=== PATIENT | female | born 1955 | race African-American/Black ===

== ENCOUNTER 2018-08-25 15:13 | Outpatient (CLI) | payer MEDICARE | END 2018-08-25 15:14 | disposition home or self-care (01) | LOC: BICMAMMO 15:13 | PROVIDERS: ATTEND General Practice | DX: Z12.31 Encounter for screening mammogram for malignant neoplasm of breast (principal) | CPT/HCPCS: 77063; 77067 ==

== ENCOUNTER 2018-09-18 12:37 | Day surgery (SDC) | payer MEDICARE ==
--- NOTE | 2018-09-18 18:18 | OP ---
DATE OF PROCEDURE: 09/18/2018 TITLE OF PROCEDURE: EGD with snare polypectomy and biopsy. PREOPERATIVE DIAGNOSES: 1. Colon cancer screening. 2. History of colon resection for diverticular disease. POSTOPERATIVE DIAGNOSES: 1. Exam to ileocolonic anastomosis. 2. Small sessile polyp in the transverse colon, 1 cm distal to the anastomosis, removed by cold snar e technique. 3. Small polyp in a diverticulum, excised with biopsy forceps. 4. Small internal hemorrhoids. 5. Otherwise normal colonoscopy. PROCEDURE IN DETAIL: Written informed consent was obtained. Upon completion of the EGD, the patient was repositioned for the colonoscopy. A digital rectal exam was performed which revealed small exte rnal hemorrhoids. A Pentax video colonoscope was inserted through the anal canal and advanced under direct visualization to the ileocolonic anastomosis. Endoscopic findings revealed an intact appearin g anastomosis without ulcer or friability. About 1 cm distal to the anastomosis, a diminutive 3 cm s essile polyp was identified and removed by cold snare technique. The tissue was retrieved for histol ogy. Another smaller 2 mm sessile polyp was identified at the opening of a diverticulum in the trans verse colon. An excisional biopsy was performed. A small amount of stool was present in the diverti culum. No other synchronous polyps were identified. The retroflexed exam of the rectum demonstrated small internal hemorrhoids that were not actively bleeding. The colon was decompressed as the colon oscope was removed from the patient. She was transferred to the day stay surgery area for post-proce dure monitoring. There were no immediate complications. RECOMMENDATIONS: 1. Await pathology results. 2. Ask the patient to call me in 1 week for pathology results. 3. Repeat colonoscopy in five years pending pathology results. 4. Suggest a daily fiber supplement, Citracel 2 teaspoons in water every morning. 5. Follow up in GI clinic in 5-6 weeks.
--- NOTE | 2018-09-18 19:32 | OP ---
DATE OF PROCEDURE: 09/18/2018 PRIMARY CARE PHYSICIAN: Jesus Espinal MD in [place], [place]. TITLE OF PROCEDURE: EGD with biopsy. PREOPERATIVE DIAGNOSIS: Epigastric pain. POSTOPERATIVE DIAGNOSES: 1. Examination to second portion of duodenum. 2. Normal esophagus. 3. Mild patchy erythema of the gastric body, biopsied for RAFAELA test. 4. No gastric or duodenal ulcers identified. 5. Otherwise normal duodenum. PROCEDURE IN DETAIL: Written informed consent was obtained. The patient was brought to the endoscop y suite. Total intravenous anesthesia was provided by Dr. Jaime Smith. The patient was placed in l eft lateral decubitus position. A bite block was inserted into the mouth. A Pentax video diagnostic gastroscope was introduced into the oral cavity and the esophagus was carefully intubated. The raissa roscope was advanced under direct visualization to the second portion of the duodenum. Endoscopic fi ndings revealed a grossly normal esophagus with normal-appearing motility. The stomach was entered a nd carefully examined. This included a retroflexed view of the cardia and fundus. The mucosa of the gastric body demonstrated mild patchy erythema without erosion or bleeding. Biopsies were obtained for RAFAELA test. The duodenum from the bulb to the second portion was then inspected and appeared alycia l. No ulcers were seen. The stomach was decompressed as the endoscope was removed from the patient. She was repositioned for the colonoscopy. RECOMMENDATIONS: 1. Await RAFAELA test results. 2. Resume diet, but eat low fat. 3. For epigastric pain, suggest using famotidine 20 mg one b.i.d. 4. Follow up in GI clinic in 6 weeks.
== END 2018-09-18 17:40 | disposition home or self-care (01) ==
LOC: SDC 12:37
PROVIDERS: ATTEND Internal Medicine Gastroenterology
PROC: 0DBL8ZX Excision of Transverse Colon, Via Natural or Artificial Opening Endoscopic, Diagnostic (ICD-10-PCS; principal; 2018-09-18)
PROC: 0DBL8ZX Excision of Transverse Colon, Via Natural or Artificial Opening Endoscopic, Diagnostic (ICD-10-PCS; 2018-09-18)
PROC: 0DB68ZZ Excision of Stomach, Via Natural or Artificial Opening Endoscopic (ICD-10-PCS; 2018-09-18)
DX: D12.3 Benign neoplasm of transverse colon (principal); K63.5 Polyp of colon; K57.31 Diverticulosis of large intestine without perforation or abscess with bleeding; K64.4 Residual hemorrhoidal skin tags; K64.8 Other hemorrhoids; M19.90 Unspecified osteoarthritis, unspecified site; I11.0 Hypertensive heart disease with heart failure; I50.9 Heart failure, unspecified; E11.9 Type 2 diabetes mellitus without complications; E78.00 Pure hypercholesterolemia, unspecified; G47.30 Sleep apnea, unspecified; E73.9 Lactose intolerance, unspecified; E66.9 Obesity, unspecified; Z68.42 Body mass index [BMI] 45.0-49.9, adult; Z79.02 Long term (current) use of antithrombotics/antiplatelets; Z79.4 Long term (current) use of insulin; Z79.82 Long term (current) use of aspirin; Z79.899 Other long term (current) drug therapy; Z90.49 Acquired absence of other specified parts of digestive tract; Z98.890 Other specified postprocedural states
CPT/HCPCS: 36416; 87081; 88305

== ENCOUNTER 2019-09-30 15:40 | Outpatient (CLI) | payer MEDICARE ==
--- NOTE | 2019-09-30 16:45 | MMO ---
Bilateral MAMMO Bilat Screen [facility]. CLINICAL HISTORY: Patient is 64 years old and is seen for screening. The patient has no family history of breast cancer. The patient has no personal history of cancer. VIEWS: The views performed were: bilateral craniocaudal with tomosynthesis and bilateral mediolateral oblique with tomosynthesis. FILMS COMPARED: The present examination has been compared to prior imaging studies performed at [facility] on 11/27/2012, 12/22/2014, 01/09/2016 and 08/25/2018. This study has been interpreted with the assistance of computer-aided detection. MAMMOGRAM FINDINGS: There are scattered fibroglandular densities. Benign calcifications are noted bilaterally. There are no suspicious masses, suspicious calcifications, or new areas of architectural distortion. IMPRESSION: THERE IS NO MAMMOGRAPHIC EVIDENCE OF MALIGNANCY. A ROUTINE FOLLOW-UP MAMMOGRAM IN 1 YEAR IS RECOMMENDED. THE RESULTS OF THIS EXAM WERE SENT TO THE PATIENT. ACR BI-RADS Category 2 - Benign finding MAMMOGRAPHY NOTE: 1. A negative mammogram report should not delay a biopsy if a dominant of clinically suspicious mass is present. 2. Approximately 10% to 15% of breast cancers are not detected by mammography. 3. Adenosis and dense breasts may obscure an underlying neoplasm. Reported by: MARTY JEFFERS MD Electonically Signed: [id number]
== END 2019-09-30 15:41 | disposition home or self-care (01) ==
LOC: BICMAMMO 15:40
PROVIDERS: ATTEND Family Medicine
DX: Z12.31 Encounter for screening mammogram for malignant neoplasm of breast (principal)
CPT/HCPCS: 77063; 77067

== ENCOUNTER 2022-06-24 15:20 | Inpatient (IN) | payer OTHER, MEDICARE ==
[2022-06-24 16:04] LABS: Hemoglobin 5.4 g/dL (12.0-16.0); Mean Corpuscular HGB CONC 31.1 g/dL (32.0-36.0); Mean Corpuscular Hemoglobin 27.2 pg (27.0-31.0); Mean Corpuscular Volume 87.5 fL (78.0-98.0); Mean Platelet Volume 9.6 fL (7.4-10.4); Platelet Count 220 thou/uL (130-400); RBC Distribution Width 15.1 % (11.5-14.5); Red Blood Cell (RBC) Count 1.98 mill/uL (4.20-5.40)
[2022-06-24 16:09] LABS: Bacteria/HPF 4+ HPF (None Seen); Bilirubin 1+ (Negative); Blood, Urine 1+ (Negative); Glucose, Urine (Dipstick) 50 mg/dL (Negative); Ketone, Urine Negative (Negative); Leukocyte Negative Leu/uL (Negative); Nitrite Negative (Negative); Protein, Urine (Dipstick) 600 mg/dL (Neg-Trace); RBC/HPF 0-3 HPF (0-3); Urobilinogen 3 mg/dL (Less than 2)
[2022-06-24] MEDS ORDERED: Piperacillin/Tazobactam 4.5 GM VIAL ONE (16:12)
[2022-06-24 16:19] LABS: Clarity Turbid (Clear)
[2022-06-24 16:20] LABS: Anisocytosis SLIGHT = 6-15 cells (100X) (0-5/hpf); Band 3 % (5-11); Burr Cells SLIGHT = 2-5 cells (100X) (0-1/hpf); Hypochromia SLIGHT = 6-15 cells (100X) (0-5/hpf); Lymphocytes 17 % (21-51); MDiff Complete? YES; Monocytes 4 % (0-10); Neutrophil 69 % (42-75); Nucleated RBC 13 % (0); Platelet Morphology Comment Appears Adequate; Polychromasia SLIGHT = 2-3 cells (100X) (0-2/hpf); Reactive Lymphocytes 7 % (0-10); Target Cells SLIGHT = 2-5 cells (100X) (0-1/hpf)
[2022-06-24 16:20] LABS: WBC/HPF 0-3 HPF (0-3)
[2022-06-24] MEDS ORDERED: Sodium Bicarb 50 MEQ/50 ML Abboject 8.4% SYRINGE ONE (16:21)
[2022-06-24] MEDS ORDERED: Atropine Sulfate 1 mg/10 ml Syringe ONE (16:21)
[2022-06-24] MEDS ORDERED: Calcium Chloride 1 GM/10 ML Abboject SYRINGE ONE (16:21)
[2022-06-24] MEDS ORDERED: EPINEPHrine 1 MG/10 ML Abboject SYRINGE ONE ×2 (16:21→23:38)
[2022-06-24 16:22] LABS: ALT (SGPT) 147 U/L (8-55); AST (SGOT) 119 U/L (5-34); Albumin 2.8 g/dL (3.4-4.8); Alkaline Phosphatase 120 U/L (40-110); Anion Gap 17 mmol/L (10-20); BUN (Urea Nitrogen) 37 mg/dL (9.8-20.1); Bilirubin, Total 1.1 mg/dL (0.2-1.2); Calc. Creatinine Clearance 0 mL/min (70-130); Calcium 8.3 mg/dL (7.8-10.44); Carbon Dioxide 21 mmol/L (23-31); Chloride 101 mmol/L (98-107); Estimated GFR 9; Globulin 3.3 g/dL (2.4-3.5); Glucose 147 mg/dL (80-115); Potassium 4.1 mmol/L (3.5-5.1); Protein, Total 6.1 g/dL (5.8-8.1); Sodium 135 mmol/L (136-145)
[2022-06-24 19:05] LABS: Lactic Acid 1.5 mmol/L (0.5-2.2)
[2022-06-24] MEDS ORDERED: NOREPINEPHRINE 8 MG/250 ML-D5W 250 ML ONE (19:17)
[2022-06-24 19:24] LABS: SARS-CoV-2 NAA Rapid Test Not Detected (NotDetected)
[2022-06-24] MEDS ORDERED: Ketamine 50 MG/ML (10ML VIAL) ONE (20:26)
[2022-06-24] MEDS ORDERED: Fentanyl 100 MCG/2 ML VIAL ONE (20:27)
[2022-06-24] MEDS ORDERED: Fentanyl CADD 100 ML IV SCH (20:45)
[2022-06-24] MEDS ORDERED: Propofol 1,000 MG/100 ML VIAL IV ONE (21:03)
[2022-06-24] MEDS ORDERED: Aspirin 300 MG Suppository ONE (21:03)
[2022-06-24] MEDS ORDERED: NOREPINEPHRINE 8 MG/250 ML-D5W 250 ML IVPB PRN (21:24)
[2022-06-24] MEDS ORDERED: Ondansetron PF 4 MG/2 ML Vial IVP PRN (21:24)
[2022-06-24] MEDS ORDERED: Ondansetron ODT 4 MG TAB PO PRN (21:24)
[2022-06-24] MEDS ORDERED: Acetaminophen 650 MG Suppository PR PRN (21:24)
[2022-06-24] MEDS ORDERED: Ventilator Sedation Protocol 1 EACH FS SCH (21:30)
[2022-06-24] MEDS ORDERED: Dextrose 5% in Water 1,000 ML IV PRN (21:33)
[2022-06-24] MEDS ORDERED: Midazolam HCl 2 mg/2 ml Vial SLOW IVP PRN (21:34)
[2022-06-24] MEDS ORDERED: Morphine 4 MG/ML VIAL SLOW IVP PRN (21:45)
[2022-06-24] MEDS ORDERED: Propofol BOLUS 1,000 MG/100 ML VIAL IV PRN (21:45)
[2022-06-24] MEDS ORDERED: Fentanyl BOLUS 250 ML IVPB PRN (21:45)
[2022-06-24] MEDS ORDERED: DISCONTINUE PREVIOUS NARCOTIC PAIN MEDICATIONS AND BENZODIAZEPINES FS SCH (21:45)
[2022-06-24 21:46] LABS: Anion Gap 21 mmol/L (10-20); BUN (Urea Nitrogen) 38 mg/dL (9.8-20.1); Calc. Creatinine Clearance 0 mL/min (70-130); Calcium 7.9 mg/dL (7.8-10.44); Carbon Dioxide 19 mmol/L (23-31); Chloride 102 mmol/L (98-107); Estimated GFR 8; Glucose 195 mg/dL (80-115); Magnesium 2.2 mg/dL (1.6-2.6); Potassium 4.6 mmol/L (3.5-5.1); Sodium 137 mmol/L (136-145)
[2022-06-24 22:46] LABS: Lactic Acid 4.3 mmol/L (0.5-2.2)
[2022-06-24] MEDS ORDERED: Furosemide 40 MG/4 ML VIAL ONE (23:50)
[2022-06-25] MEDS: Doxycycline 100 MG in Sodium Chloride 0.9% 100 ML IVPB SCH ×2 (00:49→12:37)
[2022-06-25 01:52] LABS: Hemoglobin 6.5 g/dL (12.0-16.0); Mean Corpuscular HGB CONC 30.9 g/dL (32.0-36.0); Mean Corpuscular Hemoglobin 28.3 pg (27.0-31.0); Mean Corpuscular Volume 91.7 fL (78.0-98.0); Mean Platelet Volume 9.3 fL (7.4-10.4); Platelet Count 241 thou/uL (130-400); RBC Distribution Width 15.1 % (11.5-14.5); White Blood Cell (WBC) Count 12.2 thou/uL (4.8-10.8)
[2022-06-25 02:09] LABS: Anisocytosis SLIGHT = 6-15 cells (100X) (0-5/hpf); Band 8 % (5-11); Lymphocytes 12 % (21-51); MDiff Complete? YES; Monocytes 3 % (0-10); Neutrophil 77 % (42-75); Nucleated RBC 5 % (0)
[2022-06-25 02:10] LABS: ALT (SGPT) 167 U/L (8-55); AST (SGOT) 161 U/L (5-34); Albumin 2.8 g/dL (3.4-4.8); Alkaline Phosphatase 121 U/L (40-110); Anion Gap 24 mmol/L (10-20); BUN (Urea Nitrogen) 39 mg/dL (9.8-20.1); Bilirubin, Total 1.4 mg/dL (0.2-1.2); Calc. Creatinine Clearance 23 mL/min (70-130); Calcium 7.9 mg/dL (7.8-10.44); Carbon Dioxide 15 mmol/L (23-31); Chloride 103 mmol/L (98-107); Estimated GFR 8; Globulin 3.3 g/dL (2.4-3.5); Glucose 211 mg/dL (80-115); Potassium 4.8 mmol/L (3.5-5.1); Protein, Total 6.1 g/dL (5.8-8.1); Sodium 137 mmol/L (136-145)
[2022-06-25] MEDS ORDERED: EPINEPHrine 4 MG in Dextrose 5% in Water 250 ML IV SCH (02:30)
[2022-06-25 02:32] LABS: Base Excess (BEa) 36.9 mEq/L (-2.0 to +3.0); CO2 Tension 90.6 mmHg (35.0-45.0); Calcium, Ionized (arterial) 0.85 mmol/L (1.12-1.30); Carboxyhemoglobin (COHb) 0.6 gm% (0.0-3.0); O2 Tension (PaO2), arterial 188.2 mmHg (> 80.0); Potassium - ABG Lab 5.09 mmol/L (3.70-5.30); Puncture Site LINE; pH, Arterial 7.47 (7.35-7.45)
[2022-06-25 02:35] LABS: Actual Bicarbonate (HCO3a) 13.6 mEq/L (22-28); Base Excess (BEa) -14.7 mEq/L (-2.0 to +3.0); CO2 Tension 42.9 mmHg (35.0-45.0); Calcium, Ionized (arterial) 1.07 mmol/L (1.12-1.30); Carboxyhemoglobin (COHb) 0.3 gm% (0.0-3.0); Hemoglobin (Hb) 7.2 g/dL (12.0-16.0); O2 Tension (PaO2), arterial 263.9 mmHg (> 80.0); Potassium - ABG Lab 5.83 mmol/L (3.70-5.30)
[2022-06-25 02:36] LABS: Puncture Site LINE; pH, Arterial 7.12 (7.35-7.45)
[2022-06-25 02:37] LABS: ALV-art Gradient 395.475 mmHg (0-20)
[2022-06-25] MEDS: Piperacillin/Tazobactam 3.375 GM in Sodium Chloride 0.9% 100 ML IVPB SCH ×3 (03:00→21:45)
[2022-06-25] MEDS: Sodium Bicarbonate 150 MEQ in Sterile Water Injection 1,000 ML IV SCH ×2 (03:01→13:45)
[2022-06-25] MEDS ORDERED: Pantoprazole 40 MG VIAL IVP SCH ×2 (04:30→21:00)
[2022-06-25 05:10] LABS: Lactic Acid 8.7 mmol/L (0.5-2.2)
[2022-06-25 05:12] LABS: ALT (SGPT) 175 U/L (8-55); AST (SGOT) 184 U/L (5-34); Albumin 2.8 g/dL (3.4-4.8); Alkaline Phosphatase 122 U/L (40-110); Anion Gap 25 mmol/L (10-20); BUN (Urea Nitrogen) 38 mg/dL (9.8-20.1); Bilirubin, Total 1.7 mg/dL (0.2-1.2); Calc. Creatinine Clearance 23 mL/min (70-130); Calcium 7.8 mg/dL (7.8-10.44); Carbon Dioxide 16 mmol/L (23-31); Cardiac Risk 6.9 (Less than 4.5); Chloride 102 mmol/L (98-107); Cholesterol 104 mg/dl (< 200 Desired); Estimated GFR 8; Globulin 3.4 g/dL (2.4-3.5); Glucose 206 mg/dL (80-115); HDL Cholesterol 15 mg/dL (>60 Neg Risk); LDL Cholesterol, Calculated 53 mg/dL; Magnesium 2.2 mg/dL (1.6-2.6); Potassium 4.9 mmol/L (3.5-5.1); Protein, Total 6.2 g/dL (5.8-8.1); Sodium 138 mmol/L (136-145); Triglycerides 180 mg/dL (Less than 150)
[2022-06-25 05:16] LABS: Anisocytosis MODERATE=16-30 cells (100X) (0-5/hpf); Band 16 % (5-11); Hemoglobin 7.5 g/dL (12.0-16.0); Lymphocytes 6 % (21-51); MDiff Complete? YES; Mean Corpuscular Hemoglobin 28.8 pg (27.0-31.0); Mean Platelet Volume 9.6 fL (7.4-10.4); Monocytes 6 % (0-10); Neutrophil 72 % (42-75); Nucleated RBC 14 % (0); Platelet Count 247 thou/uL (130-400); RBC Distribution Width 14.8 % (11.5-14.5); White Blood Cell (WBC) Count 12.2 thou/uL (4.8-10.8)
[2022-06-25] MEDS ORDERED: Heparin 25,000 units/D5W 500 ML IV SCH (05:30)
[2022-06-25] MEDS ORDERED: Heparin 10,000 UNITS/ 10 ML VIAL SLOW IVP SCH ×2 (05:30→17:00)
[2022-06-25 06:03] LABS: INR-International Normal Ratio 1.5; Prothrombin Time 18.6 sec (12.0-14.7)
[2022-06-25 06:04] LABS: PTT 27.3 sec (22.9-36.1)
[2022-06-25 06:20] LABS: D-Dimer Test 9.05 *mcg/mL (0.27-0.43)
[2022-06-25] MEDS ORDERED: Sodium Chloride 0.9% 500 ML IVPB SCH (06:45)
[2022-06-25] MEDS ORDERED: ANTIBIOTICS IVPB PRN (07:31)
[2022-06-25] MEDS ORDERED: Sodium Bicarb 50 MEQ/50 ML VIAL ONE ×2 (07:52→07:55)
[2022-06-25] MEDS ORDERED: Sodium Bicarb 50 MEQ/50 ML VIAL IVP SCH (08:00)
[2022-06-25 08:03] LABS: Actual Bicarbonate (HCO3a) 12.8 mEq/L (22-28); Base Excess (BEa) -14.2 mEq/L (-2.0 to +3.0); CO2 Tension 34.1 mmHg (35.0-45.0); Calcium, Ionized (arterial) 1.01 mmol/L (1.12-1.30); Carboxyhemoglobin (COHb) 0.3 gm% (0.0-3.0); Hemoglobin (Hb) 7.4 g/dL (12.0-16.0); O2 Tension (PaO2), arterial 432.1 mmHg (> 80.0); Potassium - ABG Lab 4.83 mmol/L (3.70-5.30)
[2022-06-25 08:04] LABS: Acetaminophen Less than 10.0 mcg/mL (10.0-30.0); Alcohol Less than 10 mg/dL (Less than 10); Salicylate Less than 8.0 mg/dL (15.0-30.0)
[2022-06-25 08:05] LABS: Puncture Site Arterial Line; pH, Arterial 7.19 (7.35-7.45)
[2022-06-25 08:06] LABS: ALV-art Gradient 238.275 mmHg (0-20)
[2022-06-25] MEDS: Propofol 1,000 MG/100 ML VIAL IV PRN ×2 (08:11→18:17)
[2022-06-25 08:19] LABS: Amphetamine Not Detected (NotDetected); Barbiturates Screen Not Detected (NotDetected); Benzodiazepine Screen Not Detected (NotDetected); Cocaine Metabolite Screen Not Detected (NotDetected); Methadone Not Detected (NotDetected); Methamphetamine Not Detected (NotDetected); Opiate Screen Not Detected (NotDetected); Oxycodone Screen Not Detected (NotDetected); Phencyclidine (PCP) Not Detected (NotDetected); THC/Cannabinoid Screen Not Detected (NotDetected); Tricyclic Screen Not Detected (NotDetected)
[2022-06-25 08:20] LABS: Troponin I 1.243 ng/mL (< 0.028)
[2022-06-25 08:26] LABS: HBCM Index 0.05 S/CO (0-0.79); HBSAg Index 0.25 S/CO (0-0.99); Hep A IgM AB Non-Reactive (NonReactive); Hep A IgM S/CO 0.15 S/CO (0-0.79); Hep B Surf Ag Non-Reactive S/CO (NonReactive); Hep C IgG Ab Non-Reactive (NonReactive); Hep C Index 0.23 S/CO (0-0.79); Hepatitis B Core IgM Abs Non-Reactive (NonReactive)
[2022-06-25] MEDS: Hydrocortisone Sod Succ/PF 100 mg/2 ml Vial IVP SCH ×2 (08:46→18:17)
[2022-06-25] MEDS ORDERED: Heparin 5,000 UNITS/ML VIAL SC SCH (09:00)
[2022-06-25 11:18] LABS: Lactic Acid 7.4 mmol/L (0.5-2.2)
[2022-06-25] MEDS ORDERED: ALTEPLASE (TPA) 50 MG/50 ML VIAL IVP SCH ×2 (11:45→12:30)
[2022-06-25 12:34] LABS: Hemoglobin 7.9 g/dL (12.0-16.0)
[2022-06-25] MEDS: Pantoprazole 80 MG, Admixture Fee 1 EACH in Sodium Chloride 0.9% 100 ML IVPB SCH ×2 (12:34→22:42)
[2022-06-25] MEDS: Aspirin Chewable 81 MG TAB PO SCH (12:37)
[2022-06-25] MEDS ORDERED: STERILE WATER IVPB SCH (14:00)
[2022-06-25] MEDS ORDERED: ALTEPLASE IVPB SCH (14:00)
[2022-06-25 15:12] LABS: INR-International Normal Ratio 1.6; PTT 28.1 sec (22.9-36.1); Prothrombin Time 19.1 sec (12.0-14.7)
[2022-06-25 16:13] LABS: Hemoglobin 7.2 g/dL (12.0-16.0); Mean Corpuscular HGB CONC 32.3 g/dL (32.0-36.0); Mean Corpuscular Hemoglobin 28.5 pg (27.0-31.0); Mean Platelet Volume 9.8 fL (7.4-10.4); Platelet Count 151 thou/uL (130-400); RBC Distribution Width 14.7 % (11.5-14.5); Red Blood Cell (RBC) Count 2.54 mill/uL (4.20-5.40); White Blood Cell (WBC) Count 10.8 thou/uL (4.8-10.8)
[2022-06-25 16:22] LABS: INR-International Normal Ratio 1.8; PTT 41.4 sec (22.9-36.1); Prothrombin Time 21.3 sec (12.0-14.7)
[2022-06-25 16:55] LABS: Lactic Acid 2.7 mmol/L (0.5-2.2)
[2022-06-25 16:57] LABS: Anion Gap 26 mmol/L (10-20); BUN (Urea Nitrogen) 42 mg/dL (9.8-20.1); Calc. Creatinine Clearance 24 mL/min (70-130); Calcium 7.5 mg/dL (7.8-10.44); Carbon Dioxide 15 mmol/L (23-31); Chloride 101 mmol/L (98-107); Estimated GFR 8; Glucose 220 mg/dL (80-115); Potassium 4.8 mmol/L (3.5-5.1); Sodium 137 mmol/L (136-145)
[2022-06-25] MEDS ORDERED: Heparin 25,000 units/D5W 500 ML IVPB SCH ×2 (17:00)
[2022-06-25 17:09] LABS: Troponin I 1.365 ng/mL (< 0.028)
[2022-06-25] MEDS: Heparin 25,000 units/D5W 500 ML IVPB SCH (18:28)
[2022-06-25 22:52] LABS: Legionella Urinary Ag Negative (Negative); Strep pneumo Urine Ag NEGATIVE (NEGATIVE)
[2022-06-26] MEDS: Doxycycline 100 MG in Sodium Chloride 0.9% 100 ML IVPB SCH (00:06)
[2022-06-26] MEDS: Hydrocortisone Sod Succ/PF 100 mg/2 ml Vial IVP SCH (00:07)
[2022-06-26 00:31] LABS: Hemoglobin 6.9 g/dL (12.0-16.0); Mean Corpuscular HGB CONC 32.2 g/dL (32.0-36.0); Mean Corpuscular Hemoglobin 28.3 pg (27.0-31.0); Mean Corpuscular Volume 87.9 fL (78.0-98.0); Mean Platelet Volume 9.7 fL (7.4-10.4); Platelet Count 143 thou/uL (130-400); Red Blood Cell (RBC) Count 2.44 mill/uL (4.20-5.40); White Blood Cell (WBC) Count 9.1 thou/uL (4.8-10.8)
[2022-06-26] MEDS: Sodium Bicarbonate 150 MEQ in Sterile Water Injection 1,000 ML IV SCH ×3 (00:36→16:20)
[2022-06-26 00:55] LABS: PTT Greater than 250.0 sec (22.9-36.1)
[2022-06-26] MEDS: Propofol 1,000 MG/100 ML VIAL IV PRN (04:42)
[2022-06-26 04:46] LABS: ALT (SGPT) 455 U/L (8-55); AST (SGOT) 497 U/L (5-34); Albumin 2.5 g/dL (3.4-4.8); Alkaline Phosphatase 105 U/L (40-110); Anion Gap 23 mmol/L (10-20); BUN (Urea Nitrogen) 46 mg/dL (9.8-20.1); Bilirubin, Total 2.7 mg/dL (0.2-1.2); Calc. Creatinine Clearance 22 mL/min (70-130); Calcium 7.5 mg/dL (7.8-10.44); Carbon Dioxide 21 mmol/L (23-31); Chloride 99 mmol/L (98-107); Estimated GFR 7; Glucose 207 mg/dL (80-115); Iron 18 ug/dL (50-170); Iron Binding Capacity, Total 309 mcg/dL (265-497); Lactic Acid 2.1 mmol/L (0.5-2.2); Magnesium 1.9 mg/dL (1.6-2.6); Potassium 4.3 mmol/L (3.5-5.1); Protein, Total 5.5 g/dL (5.8-8.1); Sodium 139 mmol/L (136-145)
[2022-06-26] MEDS ORDERED: Fentanyl CADD 100 ML ONE (04:58)
[2022-06-26 05:07] LABS: Band 14 % (5-11); Lymphocytes 7 % (21-51); MDiff Complete? YES; Mean Corpuscular HGB CONC 31.8 g/dL (32.0-36.0); Mean Corpuscular Volume 87.9 fL (78.0-98.0); Monocytes 5 % (0-10); Neutrophil 74 % (42-75); Nucleated RBC 8 % (0); Platelet Count 147 thou/uL (130-400); Red Blood Cell (RBC) Count 2.49 mill/uL (4.20-5.40); White Blood Cell (WBC) Count 9.4 thou/uL (4.8-10.8)
[2022-06-26] MEDS ORDERED: hydrALAZINE 20 MG/ML VIAL SLOW IVP PRN (06:59)
[2022-06-26 07:01] LABS: Actual Bicarbonate (HCO3a) 21.1 mEq/L (22-28); Base Excess (BEa) -2.6 mEq/L (-2.0 to +3.0); Calcium, Ionized (arterial) 0.94 mmol/L (1.12-1.30); Carboxyhemoglobin (COHb) 0.5 gm% (0.0-3.0); Potassium - ABG Lab 4.03 mmol/L (3.70-5.30); pH, Arterial 7.44 (7.35-7.45)
[2022-06-26 07:08] LABS: Puncture Site Arterial Line
[2022-06-26 07:17] LABS: Mean Corpuscular HGB CONC 31.7 g/dL (32.0-36.0); Mean Corpuscular Hemoglobin 28.3 pg (27.0-31.0); Mean Corpuscular Volume 89.4 fL (78.0-98.0); Mean Platelet Volume 10.2 fL (7.4-10.4); Platelet Count 143 thou/uL (130-400); Red Blood Cell (RBC) Count 2.48 mill/uL (4.20-5.40); White Blood Cell (WBC) Count 9.1 thou/uL (4.8-10.8)
[2022-06-26] MEDS ORDERED: Magnesium 2 GM/50 ML(in water) 2 GM in Premix Bag 1 BAG IVPB SCH (08:00)
[2022-06-26 08:44] LABS: Troponin I 1.972 ng/mL (< 0.028)
[2022-06-26] MEDS: Heparin 25,000 units/D5W 500 ML IVPB SCH (09:05)
[2022-06-26] MEDS: Aspirin Chewable 81 MG TAB PO SCH (09:07)
[2022-06-26] MEDS: niCARdipine 25 MG in Sodium Chloride 0.9% 250 ML 250 ML IVPB PRN ×2 (10:18→13:04)
[2022-06-26] MEDS: HumaLOG 300 UNITS/3 ML VIAL SC PRN ×3 (10:31→22:42)
[2022-06-26] MEDS: Pantoprazole 80 MG, Admixture Fee 1 EACH in Sodium Chloride 0.9% 100 ML IVPB SCH ×2 (11:20→22:16)
[2022-06-26] MEDS: Piperacillin/Tazobactam 3.375 GM in Sodium Chloride 0.9% 100 ML IVPB SCH ×2 (11:20→21:40)
[2022-06-26 12:25] LABS: PTT Greater than 250.0 sec (22.9-36.1)
[2022-06-26] MEDS ORDERED: Amlodipine 5 MG TAB PO SCH (14:00)
[2022-06-26 15:11] LABS: Hemoglobin 6.8 g/dL (12.0-16.0); Mean Corpuscular HGB CONC 31.8 g/dL (32.0-36.0); Mean Corpuscular Hemoglobin 27.8 pg (27.0-31.0); Mean Corpuscular Volume 87.4 fL (78.0-98.0); Mean Platelet Volume 10.1 fL (7.4-10.4); Platelet Count 140 thou/uL (130-400); RBC Distribution Width 15.3 % (11.5-14.5); Red Blood Cell (RBC) Count 2.46 mill/uL (4.20-5.40); White Blood Cell (WBC) Count 9.5 thou/uL (4.8-10.8)
[2022-06-26] MEDS: niCARdipine 50 MG in Sodium Chloride 0.9% 250 ML 230 ML IVPB PRN ×2 (16:46→21:39)
[2022-06-26 21:54] LABS: PTT 150.7 sec (22.9-36.1)
[2022-06-27] MEDS: niCARdipine 50 MG in Sodium Chloride 0.9% 250 ML 230 ML IVPB PRN ×3 (02:09→14:20)
[2022-06-27] MEDS: HumaLOG 300 UNITS/3 ML VIAL SC PRN ×2 (04:00→17:23)
[2022-06-27 05:04] LABS: ALT (SGPT) 311 U/L (8-55); AST (SGOT) 176 U/L (5-34); Albumin 2.4 g/dL (3.4-4.8); Alkaline Phosphatase 95 U/L (40-110); Anion Gap 22 mmol/L (10-20); BUN (Urea Nitrogen) 47 mg/dL (9.8-20.1); Bilirubin, Total 2.6 mg/dL (0.2-1.2); Calc. Creatinine Clearance 20 mL/min (70-130); Calcium 7.6 mg/dL (7.8-10.44); Carbon Dioxide 22 mmol/L (23-31); Chloride 97 mmol/L (98-107); Estimated GFR 7; Globulin 2.9 g/dL (2.4-3.5); Glucose 177 mg/dL (80-115); Magnesium 2.1 mg/dL (1.6-2.6); Potassium 3.2 mmol/L (3.5-5.1); Protein, Total 5.3 g/dL (5.8-8.1); Sodium 138 mmol/L (136-145)
[2022-06-27 06:12] LABS: Band 26 % (5-11); Hemoglobin 7.1 g/dL (12.0-16.0); Lymphocytes 9 % (21-51); MDiff Complete? YES; Mean Corpuscular HGB CONC 32.1 g/dL (32.0-36.0); Mean Corpuscular Hemoglobin 28.1 pg (27.0-31.0); Mean Corpuscular Volume 87.5 fL (78.0-98.0); Mean Platelet Volume 10.3 fL (7.4-10.4); Monocytes 5 % (0-10); Myelocyte 1 % (0-0); Neutrophil 59 % (42-75); Platelet Count 148 thou/uL (130-400); RBC Distribution Width 15.2 % (11.5-14.5); Red Blood Cell (RBC) Count 2.52 mill/uL (4.20-5.40); White Blood Cell (WBC) Count 9.8 thou/uL (4.8-10.8)
[2022-06-27] MEDS: Heparin 25,000 units/D5W 500 ML IVPB SCH (06:20)
[2022-06-27 07:37] LABS: Actual Bicarbonate (HCO3a) 27.5 mEq/L (22-28); CO2 Tension 38.5 mmHg (35.0-45.0); pH, Arterial 7.47 (7.35-7.45)
[2022-06-27 07:38] LABS: Analyzer IN Cardio OR; Base Excess (BEa) 3.6 mEq/L (-2.0 to +3.0); Calcium, Ionized (arterial) 0.95 mmol/L (1.12-1.30); Carboxyhemoglobin (COHb) 0.2 gm% (0.0-3.0); Hemoglobin (Hb) 9.8 g/dL (12.0-16.0); Potassium - ABG Lab 2.95 mmol/L (3.70-5.30); Puncture Site Arterial Line
[2022-06-27 07:39] LABS: ALV-art Gradient 174.075 mmHg (0-20)
[2022-06-27 07:49] LABS: Platelet Count 142 thou/uL (130-400)
[2022-06-27 07:53] LABS: Fibrinogen 181 mg/dL (253-463)
[2022-06-27 07:54] LABS: INR-International Normal Ratio 1.4; Prothrombin Time 17.3 sec (12.0-14.7)
[2022-06-27 08:06] LABS: PTT 229.2 sec (22.9-36.1)
[2022-06-27 08:09] LABS: D-Dimer Test Greater than 20.00 *mcg/mL (0.27-0.43); PTT 229.2 sec (22.9-36.1)
[2022-06-27] MEDS ORDERED: Heparin 10,000 UNITS/ 10 ML VIAL ONE (08:54)
[2022-06-27] MEDS: Piperacillin/Tazobactam 3.375 GM in Sodium Chloride 0.9% 100 ML IVPB SCH ×2 (09:41→21:31)
[2022-06-27] MEDS: Amlodipine 10 MG TAB PO SCH (09:41)
[2022-06-27] MEDS: Potassium Chloride 20 MEQ in Premix Bag 1 BAG IVPB SCH ×2 (09:44→11:38)
[2022-06-27] MEDS: Aspirin Chewable 81 MG TAB PO SCH (09:45)
[2022-06-27] MEDS: Pantoprazole 80 MG, Admixture Fee 1 EACH in Sodium Chloride 0.9% 100 ML IVPB SCH (09:47)
[2022-06-27 12:52] LABS: HBSAB Concentration Less than 8.00 mIU/mL; Hep B Core Total Ab Non-Reactive (NonReactive); Hep B Core Total Index 0.13 S/CO (0-0.79); Hep B Surf AB Non-Reactive (NonReactive); Hep B Surf Ag Non-Reactive S/CO (NonReactive); Hep C IgG Ab Non-Reactive (NonReactive); Hep C Index 0.15 S/CO (0-0.79)
[2022-06-27] MEDS: Sodium Bicarbonate 150 MEQ in Sterile Water Injection 1,000 ML IV SCH (15:53)
[2022-06-27 17:03] LABS: Hemoglobin 7.2 g/dL (12.0-16.0); Platelet Count 122 thou/uL (130-400)
[2022-06-27] MEDS: Propofol 1,000 MG/100 ML VIAL IV PRN (20:30)
[2022-06-27] MEDS: Pantoprazole 40 MG VIAL IVP SCH (21:31)
[2022-06-28 05:25] LABS: Band 19 % (5-11); Hemoglobin 7.2 g/dL (12.0-16.0); Lymphocytes 8 % (21-51); MDiff Complete? YES; Mean Corpuscular Hemoglobin 28.1 pg (27.0-31.0); Mean Corpuscular Volume 87.9 fL (78.0-98.0); Mean Platelet Volume 10.7 fL (7.4-10.4); Monocytes 3 % (0-10); Myelocyte 1 % (0-0); Neutrophil 69 % (42-75); Nucleated RBC 2 % (0); Platelet Count 110 thou/uL (130-400); Platelet Morphology Comment Appears Decreased; Polychromasia SLIGHT = 2-3 cells (100X) (0-2/hpf); RBC Distribution Width 15.7 % (11.5-14.5); Red Blood Cell (RBC) Count 2.56 mill/uL (4.20-5.40); White Blood Cell (WBC) Count 7.4 thou/uL (4.8-10.8)
[2022-06-28 05:26] LABS: ALT (SGPT) 237 U/L (8-55); AST (SGOT) 102 U/L (5-34); Albumin 2.6 g/dL (3.4-4.8); Alkaline Phosphatase 104 U/L (40-110); Anion Gap 19 mmol/L (10-20); BUN (Urea Nitrogen) 36 mg/dL (9.8-20.1); Bilirubin, Total 3.4 mg/dL (0.2-1.2); Calc. Creatinine Clearance 16 mL/min (70-130); Calcium 7.8 mg/dL (7.8-10.44); Carbon Dioxide 27 mmol/L (23-31); Chloride 98 mmol/L (98-107); Estimated GFR 8; Glucose 118 mg/dL (80-115); Potassium 3.7 mmol/L (3.5-5.1); Protein, Total 5.6 g/dL (5.8-8.1); Sodium 140 mmol/L (136-145)
[2022-06-28 07:32] LABS: Actual Bicarbonate (HCO3a) 27.3 mEq/L (22-28); Base Excess (BEa) 3.7 mEq/L (-2.0 to +3.0); CO2 Tension 36.9 mmHg (35.0-45.0); Hemoglobin (Hb) 7.8 g/dL (12.0-16.0); O2 Tension (PaO2), arterial 72.6 mmHg (> 80.0); Potassium - ABG Lab 3.86 mmol/L (3.70-5.30); pH, Arterial 7.49 (7.35-7.45)
[2022-06-28 07:33] LABS: Puncture Site Arterial Line
[2022-06-28 07:34] LABS: ALV-art Gradient 130.825 mmHg (0-20)
[2022-06-28] MEDS: Amlodipine 10 MG TAB PO SCH (08:45)
[2022-06-28] MEDS: Aspirin Chewable 81 MG TAB PO SCH (08:45)
[2022-06-28] MEDS: Pantoprazole 40 MG VIAL IVP SCH ×2 (08:45→21:56)
[2022-06-28] MEDS ORDERED: Heparin 10,000 UNITS/ 10 ML VIAL ONE (08:57)
[2022-06-28] MEDS ORDERED: Heparin 5,000 UNITS/ML VIAL SC SCH (09:00)
[2022-06-28] MEDS: Piperacillin/Tazobactam 3.375 GM in Sodium Chloride 0.9% 100 ML IVPB SCH ×2 (09:07→21:56)
[2022-06-28] MEDS ORDERED: Metoclopramide HCl 10 MG/2 ML VIAL IVP SCH (09:15)
[2022-06-28] MEDS: Propofol 1,000 MG/100 ML VIAL IV PRN (18:25)
[2022-06-28] MEDS: Metoclopramide HCl 10 MG/2 ML VIAL IVP SCH (21:56)
[2022-06-29 05:13] LABS: ALT (SGPT) 171 U/L (8-55); AST (SGOT) 66 U/L (5-34); Albumin 2.4 g/dL (3.4-4.8); Alkaline Phosphatase 124 U/L (40-110); Anion Gap 17 mmol/L (10-20); BUN (Urea Nitrogen) 28 mg/dL (9.8-20.1); Bilirubin, Total 3.6 mg/dL (0.2-1.2); Calc. Creatinine Clearance 27 mL/min (70-130); Calcium 8.1 mg/dL (7.8-10.44); Carbon Dioxide 28 mmol/L (23-31); Chloride 98 mmol/L (98-107); Estimated GFR 9; Globulin 3.1 g/dL (2.4-3.5); Glucose 141 mg/dL (80-115); Potassium 3.8 mmol/L (3.5-5.1); Protein, Total 5.5 g/dL (5.8-8.1); Sodium 139 mmol/L (136-145)
[2022-06-29 05:25] LABS: #Lymphocytes 0.6 thou/uL (1.20-3.40); #Monocytes 0.4 thou/uL (0.11-0.59); #Neutrophils 5.3 thou/uL (1.40-6.50); %Basophils 0.2 % (0.0-1.0); %Eosinophils 0.5 % (0.0-10.0); %Lymphocytes 9.6 % (21.0-51.0); %Monocytes 6.5 % (0.0-10.0); %Neutrophils 83.2 % (42.0-75.0); Mean Corpuscular HGB CONC 31.8 g/dL (32.0-36.0); Mean Corpuscular Hemoglobin 28.2 pg (27.0-31.0); Mean Corpuscular Volume 88.7 fL (78.0-98.0); Platelet Count 76 thou/uL (130-400); Red Blood Cell (RBC) Count 2.47 mill/uL (4.20-5.40); White Blood Cell (WBC) Count 6.4 thou/uL (4.8-10.8)
[2022-06-29] MEDS: Propofol 1,000 MG/100 ML VIAL IV PRN ×2 (06:00→17:46)
[2022-06-29 06:53] LABS: Actual Bicarbonate (HCO3a) 27.3 mEq/L (22-28); Base Excess (BEa) 2.3 mEq/L (-2.0 to +3.0); CO2 Tension 43.6 mmHg (35.0-45.0); Calcium, Ionized (arterial) 1.05 mmol/L (1.12-1.30); O2 Tension (PaO2), arterial 91.2 mmHg (> 80.0); Potassium - ABG Lab 3.64 mmol/L (3.70-5.30); pH, Arterial 7.41 (7.35-7.45)
[2022-06-29 06:55] LABS: Puncture Site RRA
[2022-06-29] MEDS ORDERED: Heparin 10,000 UNITS/ 10 ML VIAL ONE (08:39)
[2022-06-29] MEDS: Aspirin Chewable 81 MG TAB PO SCH (09:45)
[2022-06-29] MEDS: Amlodipine 10 MG TAB PO SCH (09:46)
[2022-06-29] MEDS: Pantoprazole 40 MG VIAL IVP SCH ×2 (09:46→21:35)
[2022-06-29] MEDS: Piperacillin/Tazobactam 3.375 GM in Sodium Chloride 0.9% 100 ML IVPB SCH ×2 (09:46→21:35)
[2022-06-29] MEDS: Metoclopramide HCl 10 MG/2 ML VIAL IVP SCH ×2 (09:47→21:35)
[2022-06-29 16:49] LABS: Hemoglobin 7.2 g/dL (12.0-16.0); Platelet Count 69 thou/uL (130-400)
[2022-06-29] MEDS: Atorvastatin Calcium 20 MG TAB PO SCH (21:35)
[2022-06-30 04:20] LABS: #Lymphocytes 0.8 thou/uL (1.20-3.40); #Monocytes 0.5 thou/uL (0.11-0.59); #Neutrophils 4.9 thou/uL (1.40-6.50); %Basophils 0.2 % (0.0-1.0); %Eosinophils 0.7 % (0.0-10.0); %Lymphocytes 12.1 % (21.0-51.0); %Monocytes 8.2 % (0.0-10.0); %Neutrophils 78.7 % (42.0-75.0); Hemoglobin 7.3 g/dL (12.0-16.0); Mean Corpuscular HGB CONC 32.4 g/dL (32.0-36.0); Mean Corpuscular Hemoglobin 29.1 pg (27.0-31.0); Mean Corpuscular Volume 89.8 fL (78.0-98.0); Mean Platelet Volume 11.4 fL (7.4-10.4); Platelet Count 67 thou/uL (130-400); RBC Distribution Width 15.9 % (11.5-14.5); Red Blood Cell (RBC) Count 2.49 mill/uL (4.20-5.40); White Blood Cell (WBC) Count 6.2 thou/uL (4.8-10.8)
[2022-06-30 04:39] LABS: ALT (SGPT) 139 U/L (8-55); AST (SGOT) 53 U/L (5-34); Albumin 2.5 g/dL (3.4-4.8); Alkaline Phosphatase 152 U/L (40-110); Anion Gap 16 mmol/L (10-20); BUN (Urea Nitrogen) 36 mg/dL (9.8-20.1); Bilirubin, Total 3.5 mg/dL (0.2-1.2); Calc. Creatinine Clearance 23 mL/min (70-130); Calcium 8.8 mg/dL (7.8-10.44); Carbon Dioxide 29 mmol/L (23-31); Chloride 97 mmol/L (98-107); Estimated GFR 8; Globulin 3.4 g/dL (2.4-3.5); Glucose 136 mg/dL (80-115); Magnesium 2.2 mg/dL (1.6-2.6); Potassium 3.8 mmol/L (3.5-5.1); Protein, Total 5.9 g/dL (5.8-8.1); Sodium 138 mmol/L (136-145)
[2022-06-30] MEDS: hydrALAZINE 20 MG/ML VIAL SLOW IVP PRN (06:12)
[2022-06-30 07:05] LABS: Actual Bicarbonate (HCO3a) 29.5 mEq/L (22-28); Base Excess (BEa) 5.4 mEq/L (-2.0 to +3.0); CO2 Tension 41.1 mmHg (35.0-45.0); O2 Tension (PaO2), arterial 96.4 mmHg (> 80.0); Potassium - ABG Lab 3.72 mmol/L (3.70-5.30); pH, Arterial 7.47 (7.35-7.45)
[2022-06-30 07:17] LABS: ALV-art Gradient 101.775 mmHg (0-20); Puncture Site RRA
[2022-06-30] MEDS: Aspirin Chewable 81 MG TAB PO SCH (08:28)
[2022-06-30] MEDS: Amlodipine 10 MG TAB PO SCH (08:28)
[2022-06-30] MEDS: Pantoprazole 40 MG VIAL IVP SCH ×2 (08:29→20:38)
[2022-06-30] MEDS: Metoclopramide HCl 10 MG/2 ML VIAL IVP SCH ×2 (08:29→20:38)
[2022-06-30] MEDS ORDERED: Heparin 10,000 UNITS/ 10 ML VIAL ONE (08:41)
[2022-06-30] MEDS: Scopolamine 1.5 mg/72 hour Patch TD SCH (12:46)
[2022-06-30] MEDS: Piperacillin/Tazobactam 3.375 GM in Sodium Chloride 0.9% 100 ML IVPB SCH ×2 (16:48→19:42)
[2022-06-30] MEDS: Atorvastatin Calcium 20 MG TAB PO SCH (20:38)
[2022-07-01] MEDS: Piperacillin/Tazobactam 3.375 GM in Sodium Chloride 0.9% 100 ML IVPB SCH (04:50)
[2022-07-01 05:41] LABS: ALT (SGPT) 110 U/L (8-55); AST (SGOT) 47 U/L (5-34); Albumin 2.4 g/dL (3.4-4.8); Alkaline Phosphatase 194 U/L (40-110); Anion Gap 14 mmol/L (10-20); BUN (Urea Nitrogen) 27 mg/dL (9.8-20.1); Bilirubin, Total 3.8 mg/dL (0.2-1.2); Calc. Creatinine Clearance 28 mL/min (70-130); Calcium 8.6 mg/dL (7.8-10.44); Carbon Dioxide 29 mmol/L (23-31); Chloride 98 mmol/L (98-107); Estimated GFR 10; Globulin 3.4 g/dL (2.4-3.5); Glucose 119 mg/dL (80-115); Magnesium 1.9 mg/dL (1.6-2.6); Potassium 3.7 mmol/L (3.5-5.1); Protein, Total 5.8 g/dL (5.8-8.1); Sodium 137 mmol/L (136-145)
[2022-07-01 06:06] LABS: #Eosinphils 0.1 thou/uL (0.0-0.7); #Lymphocytes 0.7 thou/uL (1.20-3.40); #Monocytes 0.7 thou/uL (0.11-0.59); #Neutrophils 5.5 thou/uL (1.40-6.50); %Basophils 0.2 % (0.0-1.0); %Eosinophils 1.1 % (0.0-10.0); %Lymphocytes 9.5 % (21.0-51.0); %Monocytes 10.5 % (0.0-10.0); %Neutrophils 78.6 % (42.0-75.0); Hemoglobin 7.1 g/dL (12.0-16.0); Mean Corpuscular HGB CONC 30.9 g/dL (32.0-36.0); Mean Corpuscular Hemoglobin 27.7 pg (27.0-31.0); Mean Corpuscular Volume 89.8 fL (78.0-98.0); Platelet Count 73 thou/uL (130-400); RBC Distribution Width 16.1 % (11.5-14.5); Red Blood Cell (RBC) Count 2.57 mill/uL (4.20-5.40)
[2022-07-01 07:14] LABS: Actual Bicarbonate (HCO3a) 30.2 mEq/L (22-28); Base Excess (BEa) 4.9 mEq/L (-2.0 to +3.0); CO2 Tension 47.1 mmHg (35.0-45.0); Calcium, Ionized (arterial) 1.13 mmol/L (1.12-1.30); O2 Tension (PaO2), arterial 85.8 mmHg (> 80.0); Potassium - ABG Lab 3.72 mmol/L (3.70-5.30); pH, Arterial 7.43 (7.35-7.45)
[2022-07-01 07:24] LABS: Puncture Site RRA
[2022-07-01 07:25] LABS: ALV-art Gradient 104.875 mmHg (0-20)
[2022-07-01] MEDS: Amlodipine 10 MG TAB PO SCH (09:10)
[2022-07-01] MEDS: Aspirin Chewable 81 MG TAB PO SCH (09:10)
[2022-07-01] MEDS: Pantoprazole 40 MG VIAL IVP SCH ×2 (09:11→20:22)
[2022-07-01] MEDS: Metoclopramide HCl 10 MG/2 ML VIAL IVP SCH ×2 (12:07→20:22)
[2022-07-01 17:06] LABS: Hemoglobin 6.9 g/dL (12.0-16.0); Platelet Count 75 thou/uL (130-400)
[2022-07-01] MEDS: Atorvastatin Calcium 20 MG TAB PO SCH (20:22)
[2022-07-02 04:43] LABS: #Eosinphils 0.1 thou/uL (0.0-0.7); #Lymphocytes 0.8 thou/uL (1.20-3.40); #Monocytes 0.8 thou/uL (0.11-0.59); #Neutrophils 5.8 thou/uL (1.40-6.50); %Basophils 0.3 % (0.0-1.0); %Eosinophils 1.2 % (0.0-10.0); %Lymphocytes 10.5 % (21.0-51.0); %Monocytes 10.6 % (0.0-10.0); %Neutrophils 77.3 % (42.0-75.0); Hemoglobin 7.7 g/dL (12.0-16.0); Mean Corpuscular HGB CONC 32.1 g/dL (32.0-36.0); Mean Corpuscular Hemoglobin 28.8 pg (27.0-31.0); Mean Corpuscular Volume 89.8 fL (78.0-98.0); Mean Platelet Volume 11.5 fL (7.4-10.4); Platelet Count 78 thou/uL (130-400); Red Blood Cell (RBC) Count 2.66 mill/uL (4.20-5.40); White Blood Cell (WBC) Count 7.5 thou/uL (4.8-10.8)
[2022-07-02 04:59] LABS: ALT (SGPT) 91 U/L (8-55); AST (SGOT) 44 U/L (5-34); Albumin 2.4 g/dL (3.4-4.8); Alkaline Phosphatase 215 U/L (40-110); Anion Gap 17 mmol/L (10-20); BUN (Urea Nitrogen) 40 mg/dL (9.8-20.1); Bilirubin, Total 4.1 mg/dL (0.2-1.2); Calc. Creatinine Clearance 23 mL/min (70-130); Calcium 8.8 mg/dL (7.8-10.44); Carbon Dioxide 27 mmol/L (23-31); Chloride 98 mmol/L (98-107); Estimated GFR 8; Globulin 3.6 g/dL (2.4-3.5); Glucose 141 mg/dL (80-115); Sodium 138 mmol/L (136-145)
[2022-07-02 08:05] LABS: ALV-art Gradient 114.075 mmHg (0-20); Actual Bicarbonate (HCO3a) 27.4 mEq/L (22-28); Analyzer IN Cardio OR; Base Excess (BEa) 2.1 mEq/L (-2.0 to +3.0); CO2 Tension 46.3 mmHg (35.0-45.0); Calcium, Ionized (arterial) 1.11 mmol/L (1.12-1.30); Hemoglobin (Hb) 7.8 g/dL (12.0-16.0); O2 Tension (PaO2), arterial 77.6 mmHg (> 80.0); Potassium - ABG Lab 3.84 mmol/L (3.70-5.30); Puncture Site RRA; pH, Arterial 7.39 (7.35-7.45)
[2022-07-02] MEDS ORDERED: Heparin 10,000 UNITS/ 10 ML VIAL ONE (08:32)
[2022-07-02] MEDS: Aspirin Chewable 81 MG TAB PO SCH (09:46)
[2022-07-02] MEDS: Amlodipine 10 MG TAB PO SCH (09:46)
[2022-07-02] MEDS: Metoclopramide HCl 10 MG/2 ML VIAL IVP SCH ×2 (09:47→21:35)
[2022-07-02] MEDS: Pantoprazole 40 MG VIAL IVP SCH ×2 (09:47→21:35)
[2022-07-02] MEDS: hydrALAZINE 20 MG/ML VIAL SLOW IVP PRN ×2 (16:26→22:34)
[2022-07-02] MEDS: Atorvastatin Calcium 20 MG TAB PO SCH (21:35)
[2022-07-02] MEDS: HumaLOG 300 UNITS/3 ML VIAL SC PRN (22:32)
[2022-07-03] MEDS: Aspirin Chewable 81 MG TAB PO SCH (08:13)
[2022-07-03] MEDS: Metoclopramide HCl 10 MG/2 ML VIAL IVP SCH (08:13)
[2022-07-03] MEDS: Pantoprazole 40 MG VIAL IVP SCH ×2 (08:13→21:05)
[2022-07-03] MEDS: Amlodipine 10 MG TAB PO SCH (08:13)
[2022-07-03] MEDS: hydrALAZINE 20 MG/ML VIAL SLOW IVP PRN ×2 (08:14→17:38)
[2022-07-03] MEDS: Scopolamine 1.5 mg/72 hour Patch TD SCH (11:48)
[2022-07-03 17:20] LABS: Hemoglobin 7.8 g/dL (12.0-16.0); Platelet Count 117 thou/uL (130-400)
[2022-07-03] MEDS: Atorvastatin Calcium 20 MG TAB PO SCH (21:05)
[2022-07-04] MEDS: hydrALAZINE 20 MG/ML VIAL SLOW IVP PRN (03:02)
[2022-07-04 04:17] LABS: #Eosinphils 0.1 thou/uL (0.0-0.7); #Lymphocytes 0.9 thou/uL (1.20-3.40); #Monocytes 0.6 thou/uL (0.11-0.59); #Neutrophils 5.8 thou/uL (1.40-6.50); %Basophils 0.2 % (0.0-1.0); %Eosinophils 0.9 % (0.0-10.0); %Monocytes 8.4 % (0.0-10.0); %Neutrophils 78.5 % (42.0-75.0); Hemoglobin 7.7 g/dL (12.0-16.0); Mean Corpuscular HGB CONC 32.1 g/dL (32.0-36.0); Mean Corpuscular Hemoglobin 28.6 pg (27.0-31.0); Mean Corpuscular Volume 89.1 fL (78.0-98.0); Mean Platelet Volume 11.1 fL (7.4-10.4); Platelet Count 125 thou/uL (130-400); RBC Distribution Width 16.7 % (11.5-14.5); Red Blood Cell (RBC) Count 2.68 mill/uL (4.20-5.40); White Blood Cell (WBC) Count 7.3 thou/uL (4.8-10.8)
[2022-07-04 04:36] LABS: Anion Gap 17 mmol/L (10-20); BUN (Urea Nitrogen) 46 mg/dL (9.8-20.1); Calc. Creatinine Clearance 23 mL/min (70-130); Carbon Dioxide 26 mmol/L (23-31); Chloride 97 mmol/L (98-107); Estimated GFR 8; Glucose 106 mg/dL (80-115); Potassium 3.8 mmol/L (3.5-5.1); Sodium 136 mmol/L (136-145)
[2022-07-04] MEDS ORDERED: Heparin 10,000 UNITS/ 10 ML VIAL ONE (08:50)
[2022-07-04] MEDS: Amlodipine 10 MG TAB PO SCH (09:38)
[2022-07-04] MEDS: Pantoprazole 40 MG VIAL IVP SCH ×2 (09:38→20:32)
[2022-07-04] MEDS: Aspirin Chewable 81 MG TAB PO SCH (09:38)
[2022-07-04 19:26] LABS: Anion Gap 14 mmol/L (10-20); BUN (Urea Nitrogen) 27 mg/dL (9.8-20.1); Calc. Creatinine Clearance 32 mL/min (70-130); Calcium 8.7 mg/dL (7.8-10.44); Carbon Dioxide 28 mmol/L (23-31); Chloride 99 mmol/L (98-107); Estimated GFR 12; Glucose 84 mg/dL (80-115); Magnesium 1.9 mg/dL (1.6-2.6); Potassium 3.6 mmol/L (3.5-5.1); Sodium 137 mmol/L (136-145)
[2022-07-04] MEDS: Atorvastatin Calcium 20 MG TAB PO SCH (20:33)
[2022-07-05 04:25] LABS: Anion Gap 15 mmol/L (10-20); BUN (Urea Nitrogen) 30 mg/dL (9.8-20.1); Calc. Creatinine Clearance 29 mL/min (70-130); Calcium 8.8 mg/dL (7.8-10.44); Carbon Dioxide 28 mmol/L (23-31); Chloride 98 mmol/L (98-107); Estimated GFR 11; Glucose 78 mg/dL (80-115); Potassium 3.8 mmol/L (3.5-5.1); Sodium 137 mmol/L (136-145)
[2022-07-05 04:29] LABS: #Lymphocytes 0.9 thou/uL (1.20-3.40); #Monocytes 0.6 thou/uL (0.11-0.59); #Neutrophils 6.2 thou/uL (1.40-6.50); %Basophils 0.2 % (0.0-1.0); %Eosinophils 0.6 % (0.0-10.0); %Lymphocytes 11.3 % (21.0-51.0); %Monocytes 7.2 % (0.0-10.0); %Neutrophils 80.7 % (42.0-75.0); Hemoglobin 7.8 g/dL (12.0-16.0); Mean Corpuscular HGB CONC 31.4 g/dL (32.0-36.0); Mean Corpuscular Hemoglobin 28.3 pg (27.0-31.0); Mean Corpuscular Volume 90.1 fL (78.0-98.0); Mean Platelet Volume 10.6 fL (7.4-10.4); Platelet Count 154 thou/uL (130-400); RBC Distribution Width 16.9 % (11.5-14.5); Red Blood Cell (RBC) Count 2.77 mill/uL (4.20-5.40); White Blood Cell (WBC) Count 7.7 thou/uL (4.8-10.8)
[2022-07-05] MEDS: Heparin 5,000 UNITS/ML VIAL SC SCH ×3 (09:19→20:45)
[2022-07-05] MEDS: Pantoprazole 40 MG VIAL IVP SCH ×2 (09:19→20:45)
[2022-07-05] MEDS: Amlodipine 10 MG TAB PO SCH (10:48)
[2022-07-05] MEDS: Aspirin Chewable 81 MG TAB PO SCH (10:48)
[2022-07-05] MEDS: Atorvastatin Calcium 20 MG TAB PO SCH (20:46)
[2022-07-06 05:12] LABS: #Lymphocytes 0.9 thou/uL (1.20-3.40); #Monocytes 0.6 thou/uL (0.11-0.59); %Basophils 0.2 % (0.0-1.0); %Eosinophils 0.6 % (0.0-10.0); %Lymphocytes 12.5 % (21.0-51.0); %Monocytes 7.4 % (0.0-10.0); %Neutrophils 79.4 % (42.0-75.0); Hemoglobin 7.8 g/dL (12.0-16.0); Mean Corpuscular HGB CONC 31.5 g/dL (32.0-36.0); Mean Corpuscular Hemoglobin 28.5 pg (27.0-31.0); Mean Corpuscular Volume 90.5 fL (78.0-98.0); Mean Platelet Volume 10.3 fL (7.4-10.4); Platelet Count 188 thou/uL (130-400); RBC Distribution Width 17.1 % (11.5-14.5); Red Blood Cell (RBC) Count 2.75 mill/uL (4.20-5.40); White Blood Cell (WBC) Count 7.5 thou/uL (4.8-10.8)
[2022-07-06 05:34] LABS: Anion Gap 14 mmol/L (10-20); BUN (Urea Nitrogen) 36 mg/dL (9.8-20.1); Calc. Creatinine Clearance 23 mL/min (70-130); Calcium 8.9 mg/dL (7.8-10.44); Carbon Dioxide 30 mmol/L (23-31); Chloride 97 mmol/L (98-107); Estimated GFR 8; Glucose 69 mg/dL (80-115); Sodium 137 mmol/L (136-145)
[2022-07-06] MEDS ORDERED: Heparin 10,000 UNITS/ 10 ML VIAL ONE ×2 (07:00→08:55)
[2022-07-06] MEDS ORDERED: Bupivacaine/Epinephrine 0.25% 30 ML VIAL ONE (07:00)
[2022-07-06] MEDS ORDERED: fentaNYL Citrate/PF 100 MCG/2 ML SYRINGE ONE (07:10)
[2022-07-06] MEDS ORDERED: Midazolam HCl 2 mg/2 ml Vial ONE (07:10)
[2022-07-06] MEDS ORDERED: Metoprolol Tartrate 5 MG/5 ML VIAL IVP SCH ×2 (07:30→08:00)
[2022-07-06] MEDS ORDERED: Lidocaine 1% PF 5 ML VIAL ONE (07:36)
[2022-07-06] MEDS ORDERED: Lidocaine 1% MPF 2 ML VIAL ONE (07:58)
[2022-07-06] MEDS: Heparin 5,000 UNITS/ML VIAL SC SCH ×3 (08:00→21:11)
[2022-07-06] MEDS: Aspirin Chewable 81 MG TAB PO SCH (08:00)
[2022-07-06] MEDS: Amlodipine 10 MG TAB PO SCH (08:00)
[2022-07-06] MEDS: Pantoprazole 40 MG VIAL IVP SCH ×2 (09:15→21:11)
[2022-07-06] MEDS: Scopolamine 1.5 mg/72 hour Patch TD SCH (12:34)
[2022-07-06] MEDS: Metoprolol Tartrate 5 MG/5 ML VIAL IVP SCH ×2 (12:34→18:25)
[2022-07-06] MEDS: Atorvastatin Calcium 20 MG TAB PO SCH (21:12)
[2022-07-07] MEDS: Dextrose 50% Abboject 50 ML SYRINGE SLOW IVP PRN ×2 (00:14→16:01)
[2022-07-07] MEDS: Metoprolol Tartrate 5 MG/5 ML VIAL IVP SCH ×4 (00:14→18:15)
[2022-07-07 04:02] LABS: #Monocytes 0.6 thou/uL (0.11-0.59); #Neutrophils 5.9 thou/uL (1.40-6.50); %Basophils 0.3 % (0.0-1.0); %Eosinophils 0.6 % (0.0-10.0); %Lymphocytes 13.5 % (21.0-51.0); %Monocytes 7.6 % (0.0-10.0); Hemoglobin 7.5 g/dL (12.0-16.0); Mean Corpuscular HGB CONC 31.8 g/dL (32.0-36.0); Mean Corpuscular Hemoglobin 28.9 pg (27.0-31.0); Mean Corpuscular Volume 90.7 fL (78.0-98.0); Mean Platelet Volume 10.4 fL (7.4-10.4); Platelet Count 188 thou/uL (130-400); RBC Distribution Width 16.9 % (11.5-14.5); White Blood Cell (WBC) Count 7.6 thou/uL (4.8-10.8)
[2022-07-07 04:25] LABS: Anion Gap 17 mmol/L (10-20); BUN (Urea Nitrogen) 28 mg/dL (9.8-20.1); Calc. Creatinine Clearance 26 mL/min (70-130); Calcium 8.8 mg/dL (7.8-10.44); Carbon Dioxide 26 mmol/L (23-31); Chloride 99 mmol/L (98-107); Estimated GFR 9; Glucose 75 mg/dL (80-115); Sodium 138 mmol/L (136-145)
[2022-07-07] MEDS: Amlodipine 10 MG TAB PO SCH (08:23)
[2022-07-07] MEDS: Heparin 5,000 UNITS/ML VIAL SC SCH ×3 (08:23→20:41)
[2022-07-07] MEDS: Pantoprazole 40 MG VIAL IVP SCH ×2 (08:23→20:42)
[2022-07-07] MEDS: Aspirin Chewable 81 MG TAB PO SCH (08:24)
[2022-07-07] MEDS: hydrALAZINE 20 MG/ML VIAL SLOW IVP PRN (08:29)
[2022-07-07] MEDS ORDERED: Sodium Bicarbonate Tab 325 MG TAB PER TUBE PRN (16:45)
[2022-07-07] MEDS ORDERED: Pancrelipase DR 12,000 1 CAP FS PRN (16:45)
[2022-07-07] MEDS: Atorvastatin Calcium 20 MG TAB PO SCH (20:41)
[2022-07-08 03:53] LABS: #Monocytes 0.6 thou/uL (0.11-0.59); #Neutrophils 6.8 thou/uL (1.40-6.50); %Basophils 0.3 % (0.0-1.0); %Eosinophils 0.2 % (0.0-10.0); %Lymphocytes 12.3 % (21.0-51.0); %Monocytes 6.7 % (0.0-10.0); %Neutrophils 80.5 % (42.0-75.0); Hemoglobin 7.5 g/dL (12.0-16.0); Mean Corpuscular HGB CONC 32.7 g/dL (32.0-36.0); Mean Corpuscular Hemoglobin 29.7 pg (27.0-31.0); Mean Corpuscular Volume 90.8 fL (78.0-98.0); Mean Platelet Volume 9.9 fL (7.4-10.4); Platelet Count 201 thou/uL (130-400); RBC Distribution Width 17.2 % (11.5-14.5); Red Blood Cell (RBC) Count 2.52 mill/uL (4.20-5.40); White Blood Cell (WBC) Count 8.5 thou/uL (4.8-10.8)
[2022-07-08 04:14] LABS: Anion Gap 15 mmol/L (10-20); BUN (Urea Nitrogen) 34 mg/dL (9.8-20.1); Calc. Creatinine Clearance 20 mL/min (70-130); Calcium 8.8 mg/dL (7.8-10.44); Carbon Dioxide 26 mmol/L (23-31); Chloride 99 mmol/L (98-107); Estimated GFR 7; Glucose 123 mg/dL (80-115); Potassium 3.8 mmol/L (3.5-5.1); Sodium 136 mmol/L (136-145)
[2022-07-08] MEDS: Metoprolol Tartrate 5 MG/5 ML VIAL IVP SCH ×5 (05:38→23:34)
[2022-07-08] MEDS: Pantoprazole 40 MG VIAL IVP SCH (09:55)
[2022-07-08] MEDS: Heparin 5,000 UNITS/ML VIAL SC SCH ×3 (09:55→21:02)
[2022-07-08] MEDS: Amlodipine 10 MG TAB PO SCH (09:56)
[2022-07-08] MEDS: Aspirin Chewable 81 MG TAB PO SCH (09:56)
[2022-07-08] MEDS: Atorvastatin Calcium 20 MG TAB PO SCH (20:37)
[2022-07-09 04:14] LABS: #Eosinphils 0.1 thou/uL (0.0-0.7); #Lymphocytes 1.3 thou/uL (1.20-3.40); #Monocytes 0.5 thou/uL (0.11-0.59); #Neutrophils 6.1 thou/uL (1.40-6.50); %Basophils 0.4 % (0.0-1.0); %Eosinophils 0.9 % (0.0-10.0); %Lymphocytes 15.7 % (21.0-51.0); %Monocytes 6.3 % (0.0-10.0); %Neutrophils 76.7 % (42.0-75.0); Hemoglobin 7.1 g/dL (12.0-16.0); Mean Corpuscular HGB CONC 31.4 g/dL (32.0-36.0); Mean Corpuscular Hemoglobin 28.8 pg (27.0-31.0); Mean Corpuscular Volume 91.7 fL (78.0-98.0); Mean Platelet Volume 10.1 fL (7.4-10.4); Platelet Count 229 thou/uL (130-400); RBC Distribution Width 17.4 % (11.5-14.5); Red Blood Cell (RBC) Count 2.46 mill/uL (4.20-5.40)
[2022-07-09 04:28] LABS: Anion Gap 16 mmol/L (10-20); BUN (Urea Nitrogen) 42 mg/dL (9.8-20.1); Calc. Creatinine Clearance 17 mL/min (70-130); Calcium 8.7 mg/dL (7.8-10.44); Carbon Dioxide 26 mmol/L (23-31); Chloride 99 mmol/L (98-107); Estimated GFR 6; Glucose 152 mg/dL (80-115); Sodium 137 mmol/L (136-145)
[2022-07-09] MEDS: Metoprolol Tartrate 5 MG/5 ML VIAL IVP SCH ×4 (05:41→23:58)
[2022-07-09] MEDS ORDERED: Heparin 10,000 UNITS/ 10 ML VIAL ONE (08:20)
[2022-07-09] MEDS: Amlodipine 10 MG TAB PO SCH (08:59)
[2022-07-09] MEDS: Heparin 5,000 UNITS/ML VIAL SC SCH ×3 (08:59→20:48)
[2022-07-09] MEDS: Aspirin Chewable 81 MG TAB PO SCH (08:59)
[2022-07-09] MEDS: Lansoprazole 3 MG/ML ORAL SUSPENSION PER TUBE SCH (08:59)
[2022-07-09] MEDS ORDERED: Pantoprazole 40 MG GRANULES PACKET PER TUBE SCH (09:00)
[2022-07-09] MEDS: Scopolamine 1.5 mg/72 hour Patch TD SCH (11:28)
[2022-07-09] MEDS: Atorvastatin Calcium 20 MG TAB PO SCH (20:48)
[2022-07-10 05:14] LABS: #Eosinphils 0.1 thou/uL (0.0-0.7); #Lymphocytes 0.9 thou/uL (1.20-3.40); #Monocytes 0.5 thou/uL (0.11-0.59); #Neutrophils 5.4 thou/uL (1.40-6.50); %Basophils 0.5 % (0.0-1.0); %Eosinophils 0.7 % (0.0-10.0); %Lymphocytes 13.6 % (21.0-51.0); %Monocytes 7.5 % (0.0-10.0); %Neutrophils 77.7 % (42.0-75.0); Mean Corpuscular Hemoglobin 28.5 pg (27.0-31.0); Mean Corpuscular Volume 91.8 fL (78.0-98.0); Mean Platelet Volume 10.1 fL (7.4-10.4); Platelet Count 219 thou/uL (130-400); RBC Distribution Width 17.2 % (11.5-14.5); Red Blood Cell (RBC) Count 2.44 mill/uL (4.20-5.40); White Blood Cell (WBC) Count 6.9 thou/uL (4.8-10.8)
[2022-07-10 05:18] LABS: Anion Gap 15 mmol/L (10-20); BUN (Urea Nitrogen) 29 mg/dL (9.8-20.1); Calc. Creatinine Clearance 0 mL/min (70-130); Calcium 8.7 mg/dL (7.8-10.44); Carbon Dioxide 28 mmol/L (23-31); Chloride 99 mmol/L (98-107); Estimated GFR 9; Glucose 153 mg/dL (80-115); Potassium 3.9 mmol/L (3.5-5.1); Sodium 138 mmol/L (136-145)
[2022-07-10] MEDS: Metoprolol Tartrate 5 MG/5 ML VIAL IVP SCH (05:21)
[2022-07-10] MEDS: Lansoprazole 3 MG/ML ORAL SUSPENSION PER TUBE SCH (08:47)
[2022-07-10] MEDS: Amlodipine 10 MG TAB PO SCH (08:48)
[2022-07-10] MEDS: Heparin 5,000 UNITS/ML VIAL SC SCH ×3 (08:48→20:26)
[2022-07-10] MEDS: Aspirin Chewable 81 MG TAB PO SCH (08:48)
[2022-07-10] MEDS: Carvedilol 6.25 MG TAB PO SCH (17:35)
[2022-07-10] MEDS: Atorvastatin Calcium 20 MG TAB PO SCH (20:26)
[2022-07-11 04:36] LABS: #Basophils 0.1 thou/uL (0.0-0.2); #Eosinphils 0.1 thou/uL (0.0-0.7); #Lymphocytes 0.8 thou/uL (1.20-3.40); #Monocytes 0.5 thou/uL (0.11-0.59); #Neutrophils 4.9 thou/uL (1.40-6.50); %Basophils 0.9 % (0.0-1.0); %Lymphocytes 12.9 % (21.0-51.0); %Monocytes 7.5 % (0.0-10.0); %Neutrophils 77.7 % (42.0-75.0); Hemoglobin 7.1 g/dL (12.0-16.0); Mean Corpuscular HGB CONC 32.3 g/dL (32.0-36.0); Mean Corpuscular Hemoglobin 29.4 pg (27.0-31.0); Mean Corpuscular Volume 90.9 fL (78.0-98.0); Mean Platelet Volume 9.8 fL (7.4-10.4); Platelet Count 224 thou/uL (130-400); RBC Distribution Width 17.2 % (11.5-14.5); White Blood Cell (WBC) Count 6.3 thou/uL (4.8-10.8)
[2022-07-11 04:50] LABS: Anion Gap 15 mmol/L (10-20); BUN (Urea Nitrogen) 36 mg/dL (9.8-20.1); Calc. Creatinine Clearance 0 mL/min (70-130); Calcium 8.7 mg/dL (7.8-10.44); Carbon Dioxide 29 mmol/L (23-31); Chloride 99 mmol/L (98-107); Estimated GFR 7; Glucose 171 mg/dL (80-115); Potassium 3.9 mmol/L (3.5-5.1); Sodium 139 mmol/L (136-145)
[2022-07-11] MEDS ORDERED: Heparin 10,000 UNITS/ 10 ML VIAL ONE (08:43)
[2022-07-11] MEDS: Aspirin Chewable 81 MG TAB PO SCH (09:48)
[2022-07-11] MEDS: Amlodipine 10 MG TAB PO SCH (09:48)
[2022-07-11] MEDS: Carvedilol 6.25 MG TAB PO SCH ×3 (09:48→16:45)
[2022-07-11] MEDS: Lansoprazole 3 MG/ML ORAL SUSPENSION PER TUBE SCH (09:48)
[2022-07-11] MEDS: Heparin 5,000 UNITS/ML VIAL SC SCH ×3 (09:49→20:59)
[2022-07-11] MEDS: Atorvastatin Calcium 20 MG TAB PO SCH (20:51)
[2022-07-12] MEDS: HumaLOG 300 UNITS/3 ML VIAL SC PRN ×2 (04:13→22:36)
[2022-07-12 04:47] LABS: #Eosinphils 0.1 thou/uL (0.0-0.7); #Lymphocytes 0.9 thou/uL (1.20-3.40); #Monocytes 0.4 thou/uL (0.11-0.59); #Neutrophils 4.6 thou/uL (1.40-6.50); %Basophils 0.6 % (0.0-1.0); %Eosinophils 0.8 % (0.0-10.0); %Lymphocytes 15.3 % (21.0-51.0); %Monocytes 6.8 % (0.0-10.0); %Neutrophils 76.5 % (42.0-75.0); Hemoglobin 7.3 g/dL (12.0-16.0); Mean Corpuscular HGB CONC 31.5 g/dL (32.0-36.0); Mean Corpuscular Hemoglobin 28.9 pg (27.0-31.0); Mean Corpuscular Volume 91.8 fL (78.0-98.0); Mean Platelet Volume 10.7 fL (7.4-10.4); Platelet Count 218 thou/uL (130-400); Red Blood Cell (RBC) Count 2.54 mill/uL (4.20-5.40)
[2022-07-12 05:09] LABS: Anion Gap 13 mmol/L (10-20); BUN (Urea Nitrogen) 25 mg/dL (9.8-20.1); Calc. Creatinine Clearance 26 mL/min (70-130); Calcium 8.8 mg/dL (7.8-10.44); Carbon Dioxide 30 mmol/L (23-31); Chloride 98 mmol/L (98-107); Estimated GFR 11; Glucose 169 mg/dL (80-115); Potassium 3.6 mmol/L (3.5-5.1); Sodium 137 mmol/L (136-145)
[2022-07-12] MEDS: Aspirin Chewable 81 MG TAB PO SCH (08:31)
[2022-07-12] MEDS: Amlodipine 10 MG TAB PO SCH (08:31)
[2022-07-12] MEDS: Heparin 5,000 UNITS/ML VIAL SC SCH ×3 (08:31→20:46)
[2022-07-12] MEDS: Carvedilol 6.25 MG TAB PO SCH ×2 (08:32→17:03)
[2022-07-12] MEDS: Lansoprazole 3 MG/ML ORAL SUSPENSION PER TUBE SCH (08:32)
[2022-07-12] MEDS: Epoetin (ESRD) 10,000 UNITS/ML VIAL SC SCH (12:36)
[2022-07-12] MEDS: Scopolamine 1.5 mg/72 hour Patch TD SCH (12:36)
[2022-07-12] MEDS: Atorvastatin Calcium 20 MG TAB PO SCH (20:46)
[2022-07-13] MEDS: HumaLOG 300 UNITS/3 ML VIAL SC PRN (05:06)
[2022-07-13] MEDS: Carvedilol 6.25 MG TAB PO SCH ×2 (08:56→16:31)
[2022-07-13] MEDS: Amlodipine 10 MG TAB PO SCH (08:57)
[2022-07-13] MEDS: Aspirin Chewable 81 MG TAB PO SCH (08:57)
[2022-07-13] MEDS: Heparin 5,000 UNITS/ML VIAL SC SCH (08:57)
[2022-07-13] MEDS: Lansoprazole 3 MG/ML ORAL SUSPENSION PER TUBE SCH (08:57)
[2022-07-13] MEDS ORDERED: Heparin 10,000 UNITS/ 10 ML VIAL ONE (09:29)
[2022-07-13] MEDS ORDERED: Apixaban 5 MG TAB PO SCH (11:15)
[2022-07-13] MEDS ORDERED: Iopamidol-370 76% 500 ML 1 ML ONE (15:15)
[2022-07-13] MEDS: Atorvastatin Calcium 40 MG TAB PO SCH (22:35)
[2022-07-13] MEDS: Apixaban 5 MG TAB PO SCH (22:35)
[2022-07-14] MEDS: Carvedilol 6.25 MG TAB PO SCH ×2 (08:45→17:30)
[2022-07-14] MEDS: Apixaban 5 MG TAB PO SCH ×2 (08:46→20:31)
[2022-07-14] MEDS: Amlodipine 10 MG TAB PO SCH (08:46)
[2022-07-14] MEDS: Aspirin Chewable 81 MG TAB PO SCH (08:46)
[2022-07-14] MEDS: Lansoprazole 3 MG/ML ORAL SUSPENSION PER TUBE SCH (08:51)
[2022-07-14] MEDS: Atorvastatin Calcium 40 MG TAB PO SCH (20:31)
[2022-07-15 06:32] LABS: Anion Gap 15 mmol/L (10-20); BUN (Urea Nitrogen) 26 mg/dL (9.8-20.1); Calc. Creatinine Clearance 21 mL/min (70-130); Calcium 8.6 mg/dL (7.8-10.44); Carbon Dioxide 28 mmol/L (23-31); Chloride 99 mmol/L (98-107); Estimated GFR 8; Glucose 78 mg/dL (80-115); Potassium 3.8 mmol/L (3.5-5.1); Sodium 138 mmol/L (136-145)
[2022-07-15] MEDS: Apixaban 5 MG TAB PO SCH ×2 (09:45→20:39)
[2022-07-15] MEDS: Amlodipine 10 MG TAB PO SCH (09:45)
[2022-07-15] MEDS: Aspirin Chewable 81 MG TAB PO SCH (09:45)
[2022-07-15] MEDS: Carvedilol 6.25 MG TAB PO SCH ×2 (09:46→18:31)
[2022-07-15] MEDS: Lansoprazole 3 MG/ML ORAL SUSPENSION PER TUBE SCH (09:46)
[2022-07-15] MEDS: Scopolamine 1.5 mg/72 hour Patch TD SCH (13:00)
[2022-07-15] MEDS: Atorvastatin Calcium 40 MG TAB PO SCH (20:39)
[2022-07-16 06:40] LABS: Anion Gap 15 mmol/L (10-20); BUN (Urea Nitrogen) 33 mg/dL (9.8-20.1); Calc. Creatinine Clearance 17 mL/min (70-130); Calcium 8.5 mg/dL (7.8-10.44); Carbon Dioxide 29 mmol/L (23-31); Chloride 98 mmol/L (98-107); Estimated GFR 6; Glucose 87 mg/dL (80-115); Sodium 138 mmol/L (136-145)
[2022-07-16] MEDS: Apixaban 5 MG TAB PO SCH ×2 (08:55→21:15)
[2022-07-16] MEDS: Aspirin Chewable 81 MG TAB PO SCH (08:55)
[2022-07-16] MEDS: Lansoprazole 3 MG/ML ORAL SUSPENSION PER TUBE SCH (08:56)
[2022-07-16] MEDS: Amlodipine 10 MG TAB PO SCH (09:15)
[2022-07-16] MEDS: Carvedilol 6.25 MG TAB PO SCH ×2 (09:15→17:49)
[2022-07-16] MEDS ORDERED: Heparin 10,000 UNITS/ 10 ML VIAL ONE (09:34)
[2022-07-16] MEDS: Atorvastatin Calcium 40 MG TAB PO SCH (21:15)
[2022-07-16] MEDS: Acetaminophen 325 MG TAB PO PRN (23:58)
[2022-07-17 06:31] LABS: #Lymphocytes 1.3 thou/uL (1.20-3.40); #Monocytes 0.7 thou/uL (0.11-0.59); #Neutrophils 3.4 thou/uL (1.40-6.50); %Basophils 0.6 % (0.0-1.0); %Eosinophils 0.4 % (0.0-10.0); %Lymphocytes 23.3 % (21.0-51.0); %Monocytes 12.5 % (0.0-10.0); %Neutrophils 63.1 % (42.0-75.0); Hemoglobin 7.3 g/dL (12.0-16.0); Mean Corpuscular HGB CONC 31.3 g/dL (32.0-36.0); Mean Corpuscular Volume 92.6 fL (78.0-98.0); Mean Platelet Volume 8.8 fL (7.4-10.4); Platelet Count 275 thou/uL (130-400); Red Blood Cell (RBC) Count 2.52 mill/uL (4.20-5.40); White Blood Cell (WBC) Count 5.4 thou/uL (4.8-10.8)
[2022-07-17 06:51] LABS: Anion Gap 15 mmol/L (10-20); BUN (Urea Nitrogen) 17 mg/dL (9.8-20.1); Calc. Creatinine Clearance 25 mL/min (70-130); Calcium 8.2 mg/dL (7.8-10.44); Carbon Dioxide 28 mmol/L (23-31); Chloride 99 mmol/L (98-107); Estimated GFR 10; Glucose 81 mg/dL (80-115); Potassium 3.9 mmol/L (3.5-5.1); Sodium 138 mmol/L (136-145)
[2022-07-17] MEDS: Apixaban 5 MG TAB PO SCH ×2 (09:37→22:22)
[2022-07-17] MEDS: Carvedilol 6.25 MG TAB PO SCH ×2 (09:38→17:25)
[2022-07-17] MEDS: Amlodipine 10 MG TAB PO SCH (09:38)
[2022-07-17] MEDS: Lansoprazole 3 MG/ML ORAL SUSPENSION PER TUBE SCH (09:38)
[2022-07-17] MEDS: Aspirin Chewable 81 MG TAB PO SCH (09:38)
[2022-07-17] MEDS: Atorvastatin Calcium 40 MG TAB PO SCH (22:24)
[2022-07-18] MEDS: Aspirin Chewable 81 MG TAB PO SCH (08:43)
[2022-07-18] MEDS: Apixaban 5 MG TAB PO SCH ×2 (08:43→21:35)
[2022-07-18] MEDS: Carvedilol 6.25 MG TAB PO SCH ×2 (08:44→17:59)
[2022-07-18] MEDS: Amlodipine 10 MG TAB PO SCH (08:44)
[2022-07-18] MEDS: Lansoprazole 3 MG/ML ORAL SUSPENSION PER TUBE SCH (08:44)
[2022-07-18] MEDS ORDERED: Heparin 10,000 UNITS/ 10 ML VIAL ONE (12:45)
[2022-07-18] MEDS: Scopolamine 1.5 mg/72 hour Patch TD SCH (17:58)
[2022-07-18] MEDS: Atorvastatin Calcium 40 MG TAB PO SCH (21:35)
[2022-07-19] MEDS: Acetaminophen 325 MG TAB PO PRN (02:27)
[2022-07-19 07:35] LABS: #Lymphocytes 1.8 thou/uL (1.20-3.40); #Monocytes 0.9 thou/uL (0.11-0.59); #Neutrophils 4.6 thou/uL (1.40-6.50); %Basophils 0.5 % (0.0-1.0); %Eosinophils 0.4 % (0.0-10.0); %Lymphocytes 24.4 % (21.0-51.0); %Monocytes 12.4 % (0.0-10.0); %Neutrophils 62.4 % (42.0-75.0); Hemoglobin 7.7 g/dL (12.0-16.0); Mean Corpuscular HGB CONC 30.7 g/dL (32.0-36.0); Mean Corpuscular Hemoglobin 28.4 pg (27.0-31.0); Mean Corpuscular Volume 92.7 fL (78.0-98.0); Mean Platelet Volume 8.8 fL (7.4-10.4); Platelet Count 309 thou/uL (130-400); RBC Distribution Width 16.4 % (11.5-14.5); Red Blood Cell (RBC) Count 2.69 mill/uL (4.20-5.40); White Blood Cell (WBC) Count 7.3 thou/uL (4.8-10.8)
[2022-07-19 07:53] LABS: ALT (SGPT) 24 U/L (8-55); AST (SGOT) 40 U/L (5-34); Albumin 2.2 g/dL (3.4-4.8); Alkaline Phosphatase 212 U/L (40-110); Anion Gap 14 mmol/L (10-20); BUN (Urea Nitrogen) 14 mg/dL (9.8-20.1); Bilirubin, Total 1.6 mg/dL (0.2-1.2); Calc. Creatinine Clearance 27 mL/min (70-130); Calcium 8.1 mg/dL (7.8-10.44); Carbon Dioxide 27 mmol/L (23-31); Chloride 100 mmol/L (98-107); Estimated GFR 12; Globulin 4.8 g/dL (2.4-3.5); Glucose 83 mg/dL (80-115); Potassium 3.6 mmol/L (3.5-5.1); Sodium 137 mmol/L (136-145)
[2022-07-19] MEDS: Carvedilol 6.25 MG TAB PO SCH ×2 (10:39→18:19)
[2022-07-19] MEDS: Aspirin Chewable 81 MG TAB PO SCH (10:39)
[2022-07-19] MEDS: Apixaban 5 MG TAB PO SCH ×2 (10:40→21:53)
[2022-07-19] MEDS: Lansoprazole 3 MG/ML ORAL SUSPENSION PER TUBE SCH (10:40)
[2022-07-19] MEDS: Amlodipine 10 MG TAB PO SCH (10:40)
[2022-07-19] MEDS: Epoetin (ESRD) 10,000 UNITS/ML VIAL SC SCH (14:23)
[2022-07-19] MEDS: Atorvastatin Calcium 40 MG TAB PO SCH (21:52)
[2022-07-20] MEDS ORDERED: Heparin 10,000 UNITS/ 10 ML VIAL ONE (08:19)
[2022-07-20] MEDS: Carvedilol 6.25 MG TAB PO SCH ×2 (09:25→16:43)
[2022-07-20] MEDS: Aspirin Chewable 81 MG TAB PO SCH (09:26)
[2022-07-20] MEDS: Apixaban 5 MG TAB PO SCH ×2 (09:26→21:29)
[2022-07-20] MEDS: Lansoprazole 3 MG/ML ORAL SUSPENSION PER TUBE SCH (09:26)
[2022-07-20] MEDS: Amlodipine 10 MG TAB PO SCH (09:26)
[2022-07-20] MEDS: Atorvastatin Calcium 40 MG TAB PO SCH (21:29)
[2022-07-21] MEDS: Carvedilol 6.25 MG TAB PO SCH ×2 (10:16→19:52)
[2022-07-21] MEDS: Amlodipine 10 MG TAB PO SCH (10:17)
[2022-07-21] MEDS: Aspirin Chewable 81 MG TAB PO SCH (10:17)
[2022-07-21] MEDS: Apixaban 5 MG TAB PO SCH ×2 (10:18→22:06)
[2022-07-21] MEDS: Lansoprazole 3 MG/ML ORAL SUSPENSION PER TUBE SCH (19:20)
[2022-07-21] MEDS: Scopolamine 1.5 mg/72 hour Patch TD SCH (19:52)
[2022-07-21] MEDS: Atorvastatin Calcium 40 MG TAB PO SCH (22:06)
[2022-07-22] MEDS: Apixaban 5 MG TAB PO SCH (10:45)
[2022-07-22] MEDS: Aspirin Chewable 81 MG TAB PO SCH (10:45)
[2022-07-22] MEDS: Lansoprazole 3 MG/ML ORAL SUSPENSION PER TUBE SCH (10:45)
[2022-07-22] MEDS: Carvedilol 6.25 MG TAB PO SCH (11:06)
[2022-07-22] MEDS: Amlodipine 10 MG TAB PO SCH (11:06)
[2022-07-22 19:33] LABS: Hemoglobin 8.4 g/dL (12.0-16.0); Platelet Count 287 thou/uL (130-400)
[2022-07-22] MEDS: Atorvastatin Calcium 40 MG TAB PO SCH (22:13)
[2022-07-22] MEDS: Heparin 10,000 UNITS/ 10 ML VIAL SLOW IVP SCH (22:59)
[2022-07-22] MEDS: Heparin 25,000 units/D5W 500 ML IVPB SCH (22:59)
[2022-07-23 02:19] LABS: PTT Greater than 250.0 sec (22.9-36.1)
[2022-07-23 04:36] LABS: #Basophils 0.1 thou/uL (0.0-0.2); #Eosinphils 0.1 thou/uL (0.0-0.7); #Lymphocytes 2.1 thou/uL (1.20-3.40); #Monocytes 0.9 thou/uL (0.11-0.59); #Neutrophils 7.1 thou/uL (1.40-6.50); %Basophils 0.5 % (0.0-1.0); %Eosinophils 0.6 % (0.0-10.0); %Monocytes 8.5 % (0.0-10.0); %Neutrophils 69.4 % (42.0-75.0); Hemoglobin 7.9 g/dL (12.0-16.0); Mean Corpuscular HGB CONC 31.5 g/dL (32.0-36.0); Mean Corpuscular Hemoglobin 28.6 pg (27.0-31.0); Mean Platelet Volume 8.8 fL (7.4-10.4); Platelet Count 290 thou/uL (130-400); RBC Distribution Width 16.4 % (11.5-14.5); Red Blood Cell (RBC) Count 2.76 mill/uL (4.20-5.40); White Blood Cell (WBC) Count 10.2 thou/uL (4.8-10.8)
[2022-07-23 04:55] LABS: Anion Gap 17 mmol/L (10-20); BUN (Urea Nitrogen) 23 mg/dL (9.8-20.1); Calc. Creatinine Clearance 17 mL/min (70-130); Calcium 8.3 mg/dL (7.8-10.44); Carbon Dioxide 23 mmol/L (23-31); Chloride 98 mmol/L (98-107); Estimated GFR 7; Glucose 85 mg/dL (80-115); Potassium 3.5 mmol/L (3.5-5.1); Sodium 134 mmol/L (136-145)
[2022-07-23] MEDS: Carvedilol 6.25 MG TAB PO SCH ×3 (05:40→16:45)
[2022-07-23] MEDS ORDERED: Heparin 10,000 UNITS/ 10 ML VIAL ONE (08:30)
[2022-07-23] MEDS ORDERED: CEFAZOLIN 2 GM in Sodium Chloride 0.9% 100 ML IVPB SCH (10:00)
[2022-07-23] MEDS: Amlodipine 10 MG TAB PO SCH (12:54)
[2022-07-23] MEDS: Lansoprazole 3 MG/ML ORAL SUSPENSION PER TUBE SCH (12:57)
[2022-07-23] MEDS: Aspirin Chewable 81 MG TAB PO SCH (12:57)
[2022-07-23] MEDS: Heparin 25,000 units/D5W 500 ML IVPB SCH (16:46)
[2022-07-23 17:09] LABS: SARS-CoV-2 NAA Rapid Test Not Detected (NotDetected)
[2022-07-23 20:25] LABS: PTT Greater than 250.0 sec (22.9-36.1)
[2022-07-23] MEDS: Atorvastatin Calcium 40 MG TAB PO SCH (20:54)
[2022-07-24] MEDS: Acetaminophen 325 MG TAB PO PRN ×2 (00:04→23:27)
[2022-07-24] MEDS ORDERED: Sodium Bicarb 50 MEQ/50 ML Abboject 8.4% SYRINGE ONE (00:35)
[2022-07-24] MEDS ORDERED: EPINEPHrine 1 MG/10 ML Abboject SYRINGE ONE (00:35)
[2022-07-24 01:32] LABS: Base Excess (BEa) 2.5 mEq/L (-2.0 to +3.0); CO2 Tension 41.1 mmHg (35.0-45.0); Calcium, Ionized (arterial) 1.08 mmol/L (1.12-1.30); Carboxyhemoglobin (COHb) 0.6 gm% (0.0-3.0); O2 Tension (PaO2), arterial 82.2 mmHg (> 80.0); Potassium - ABG Lab 2.88 mmol/L (3.70-5.30); pH, Arterial 7.44 (7.35-7.45)
[2022-07-24 01:34] LABS: ALV-art Gradient 294.225 mmHg (0-20); Puncture Site RBR
[2022-07-24 01:36] LABS: Lactic Acid 5.8 mmol/L (0.5-2.2)
[2022-07-24] MEDS ORDERED: Piperacillin/Tazobactam 3.375 GM in Sodium Chloride 0.9% 100 ML IVPB SCH (01:45)
[2022-07-24] MEDS ORDERED: VANCOMYCIN 1.25 GM/250 ML BAG IVPB SCH (01:45)
[2022-07-24 01:53] LABS: ALT (SGPT) 26 U/L (8-55); AST (SGOT) 74 U/L (5-34); Albumin 1.9 g/dL (3.4-4.8); Alkaline Phosphatase 331 U/L (40-110); Anion Gap 19 mmol/L (10-20); BUN (Urea Nitrogen) 10 mg/dL (9.8-20.1); Bilirubin, Total 2.5 mg/dL (0.2-1.2); Calc. Creatinine Clearance 27 mL/min (70-130); Calcium 7.3 mg/dL (7.8-10.44); Carbon Dioxide 23 mmol/L (23-31); Chloride 90 mmol/L (98-107); Estimated GFR 12; Globulin 4.5 g/dL (2.4-3.5); Glucose 484 mg/dL (80-115); Protein, Total 6.4 g/dL (5.8-8.1); Sodium 129 mmol/L (136-145)
[2022-07-24 01:56] LABS: CKMB 1.5 ng/mL (0-6.6)
[2022-07-24] MEDS ORDERED: VANCOMYCIN 2 GRAM/500 ML BAG 2 GM in Premix Bag 1 BAG IVPB SCH (02:00)
[2022-07-24] MEDS ORDERED: Vancomycin Dialysis Sliding Scale (Wt > 99) FS SCH (02:00)
[2022-07-24 02:12] LABS: Potassium 2.8 mmol/L (3.5-5.1)
[2022-07-24] MEDS ORDERED: Vasopressin 20 UNIT, Admixture Fee 1 EACH in Sodium Chloride 0.9% 50 ML IV SCH (02:15)
[2022-07-24] MEDS: NOREPINEPHRINE 8 MG/250 ML-D5W 250 ML IVPB SCH ×3 (02:38→18:47)
[2022-07-24] MEDS: Potassium Chloride 20 MEQ TAB PO SCH (03:53)
[2022-07-24] MEDS: Piperacillin/Tazobactam 3.375 GM in Sodium Chloride 0.9% 100 ML IVPB SCH ×2 (05:49→17:09)
[2022-07-24 06:33] LABS: Lactic Acid 7.6 mmol/L (0.5-2.2)
[2022-07-24 06:47] LABS: Vancomycin, Random 28.6 ug/mL (See Comment)
[2022-07-24 09:39] LABS: Lactic Acid 7.3 mmol/L (0.5-2.2)
[2022-07-24] MEDS: Aspirin Chewable 81 MG TAB PO SCH (09:54)
[2022-07-24] MEDS: Carvedilol 6.25 MG TAB PO SCH (10:02)
[2022-07-24 12:42] LABS: PTT 124.2 sec (22.9-36.1)
[2022-07-24] MEDS: Scopolamine 1.5 mg/72 hour Patch TD SCH (12:57)
[2022-07-24] MEDS: Lansoprazole 3 MG/ML ORAL SUSPENSION PER TUBE SCH (12:59)
[2022-07-24] MEDS: Heparin 25,000 units/D5W 500 ML IVPB SCH (15:18)
[2022-07-24 19:46] LABS: Hemoglobin 7.5 g/dL (12.0-16.0); Platelet Count 295 thou/uL (130-400)
[2022-07-24] MEDS: Atorvastatin Calcium 40 MG TAB PO SCH (21:02)
[2022-07-24 21:30] LABS: Anion Gap 20 mmol/L (10-20); BUN (Urea Nitrogen) 16 mg/dL (9.8-20.1); Calc. Creatinine Clearance 21 mL/min (70-130); Calcium 7.9 mg/dL (7.8-10.44); Carbon Dioxide 22 mmol/L (23-31); Chloride 96 mmol/L (98-107); Estimated GFR 10; Glucose 195 mg/dL (80-115); Potassium 3.6 mmol/L (3.5-5.1); Sodium 134 mmol/L (136-145)
[2022-07-24 21:50] LABS: Lactic Acid 4.8 mmol/L (0.5-2.2)
[2022-07-25] MEDS: NOREPINEPHRINE 8 MG/250 ML-D5W 250 ML IVPB SCH ×3 (00:51→23:04)
[2022-07-25 03:43] LABS: Lactic Acid 3.4 mmol/L (0.5-2.2)
[2022-07-25 04:06] LABS: ALT (SGPT) 53 U/L (8-55); AST (SGOT) 145 U/L (5-34); Albumin 2.1 g/dL (3.4-4.8); Alkaline Phosphatase 319 U/L (40-110); Anion Gap 17 mmol/L (10-20); BUN (Urea Nitrogen) 19 mg/dL (9.8-20.1); Bilirubin, Total 3.8 mg/dL (0.2-1.2); CK (CPK) 193 U/L (29-168); Calc. Creatinine Clearance 20 mL/min (70-130); Calcium 7.7 mg/dL (7.8-10.44); Carbon Dioxide 23 mmol/L (23-31); Chloride 95 mmol/L (98-107); Estimated GFR 9; Globulin 4.8 g/dL (2.4-3.5); Glucose 182 mg/dL (80-115); Magnesium 1.5 mg/dL (1.6-2.6); Potassium 3.4 mmol/L (3.5-5.1); Protein, Total 6.9 g/dL (5.8-8.1); Sodium 132 mmol/L (136-145)
[2022-07-25 05:07] LABS: Band 25 % (5-11); Hemoglobin 7.2 g/dL (12.0-16.0); Lymphocytes 16 % (21-51); MDiff Complete? YES; Mean Corpuscular HGB CONC 29.9 g/dL (32.0-36.0); Mean Corpuscular Hemoglobin 26.9 pg (27.0-31.0); Mean Corpuscular Volume 90.2 fL (78.0-98.0); Mean Platelet Volume 9.2 fL (7.4-10.4); Monocytes 5 % (0-10); Neutrophil 54 % (42-75); Platelet Count 283 thou/uL (130-400); RBC Distribution Width 16.7 % (11.5-14.5); Red Blood Cell (RBC) Count 2.67 mill/uL (4.20-5.40)
[2022-07-25] MEDS: Piperacillin/Tazobactam 3.375 GM in Sodium Chloride 0.9% 100 ML IVPB SCH ×2 (05:29→18:37)
[2022-07-25] MEDS: Potassium Chloride 20 MEQ TAB PO SCH (05:34)
[2022-07-25 07:07] LABS: Actual Bicarbonate (HCO3a) 26.6 mEq/L (22-28); Base Excess (BEa) 3.8 mEq/L (-2.0 to +3.0); Calcium, Ionized (arterial) 1.05 mmol/L (1.12-1.30); Carboxyhemoglobin (COHb) 0.6 gm% (0.0-3.0); Hemoglobin (Hb) 8.2 g/dL (12.0-16.0); O2 Tension (PaO2), arterial 103.4 mmHg (> 80.0); Potassium - ABG Lab 3.33 mmol/L (3.70-5.30); pH, Arterial 7.53 (7.35-7.45)
[2022-07-25 07:09] LABS: Puncture Site LRA
[2022-07-25 07:23] LABS: Vancomycin, Random 21.5 ug/mL (See Comment)
[2022-07-25] MEDS: Lansoprazole 3 MG/ML ORAL SUSPENSION PER TUBE SCH (08:10)
[2022-07-25] MEDS: Aspirin Chewable 81 MG TAB PO SCH (08:10)
[2022-07-25] MEDS ORDERED: Heparin 10,000 UNITS/ 10 ML VIAL ONE (09:55)
[2022-07-25] MEDS: HumaLOG 300 UNITS/3 ML VIAL SC PRN (11:32)
[2022-07-25] MEDS ORDERED: Magnesium 2 GM/50 ML(in water) 2 GM in Premix Bag 1 BAG IVPB SCH (12:30)
[2022-07-25] MEDS: Heparin 25,000 units/D5W 500 ML IVPB SCH (12:54)
[2022-07-25] MEDS: Morphine 2 MG/ML VIAL SLOW IVP PRN (20:07)
[2022-07-25] MEDS: Atorvastatin Calcium 40 MG TAB PO SCH (20:09)
[2022-07-26] MEDS: Morphine 2 MG/ML VIAL SLOW IVP PRN ×2 (02:40→20:03)
[2022-07-26 04:07] LABS: #Lymphocytes 1.1 thou/uL (1.20-3.40); #Monocytes 0.3 thou/uL (0.11-0.59); #Neutrophils 8.8 thou/uL (1.40-6.50); %Basophils 0.4 % (0.0-1.0); %Eosinophils 0.3 % (0.0-10.0); %Lymphocytes 10.7 % (21.0-51.0); %Monocytes 2.6 % (0.0-10.0); %Neutrophils 85.9 % (42.0-75.0); Hemoglobin 7.7 g/dL (12.0-16.0); Mean Corpuscular HGB CONC 32.4 g/dL (32.0-36.0); Mean Corpuscular Hemoglobin 28.8 pg (27.0-31.0); Mean Corpuscular Volume 88.9 fL (78.0-98.0); Mean Platelet Volume 9.4 fL (7.4-10.4); Platelet Count 245 thou/uL (130-400); RBC Distribution Width 16.5 % (11.5-14.5); Red Blood Cell (RBC) Count 2.68 mill/uL (4.20-5.40); White Blood Cell (WBC) Count 10.2 thou/uL (4.8-10.8)
[2022-07-26 04:19] LABS: Lactic Acid 2.3 mmol/L (0.5-2.2)
[2022-07-26 04:24] LABS: ALT (SGPT) 44 U/L (8-55); AST (SGOT) 86 U/L (5-34); Alkaline Phosphatase 382 U/L (40-110); Anion Gap 15 mmol/L (10-20); BUN (Urea Nitrogen) 11 mg/dL (9.8-20.1); Calc. Creatinine Clearance 35 mL/min (70-130); Calcium 7.5 mg/dL (7.8-10.44); Carbon Dioxide 26 mmol/L (23-31); Chloride 95 mmol/L (98-107); Estimated GFR 18; Globulin 4.9 g/dL (2.4-3.5); Glucose 159 mg/dL (80-115); Magnesium 1.8 mg/dL (1.6-2.6); Potassium 3.7 mmol/L (3.5-5.1); Protein, Total 6.9 g/dL (5.8-8.1); Sodium 132 mmol/L (136-145)
[2022-07-26] MEDS: Piperacillin/Tazobactam 3.375 GM in Sodium Chloride 0.9% 100 ML IVPB SCH (05:43)
[2022-07-26] MEDS: Heparin 10,000 UNITS/ 10 ML VIAL SLOW IVP SCH (06:46)
[2022-07-26 07:22] LABS: Base Excess (BEa) 3.4 mEq/L (-2.0 to +3.0); CO2 Tension 36.6 mmHg (35.0-45.0); Calcium, Ionized (arterial) 1.03 mmol/L (1.12-1.30); Hemoglobin (Hb) 7.6 g/dL (12.0-16.0); O2 Tension (PaO2), arterial 100.2 mmHg (> 80.0); Potassium - ABG Lab 3.71 mmol/L (3.70-5.30); pH, Arterial 7.49 (7.35-7.45)
[2022-07-26 07:24] LABS: Puncture Site LRA
[2022-07-26 07:26] LABS: Vancomycin, Random 15.1 ug/mL (See Comment)
[2022-07-26] MEDS: Heparin 25,000 units/D5W 500 ML IVPB SCH (08:38)
[2022-07-26] MEDS: Pantoprazole 40 MG VIAL IVP SCH (08:38)
[2022-07-26] MEDS: Aspirin Chewable 81 MG TAB PO SCH (08:38)
[2022-07-26] MEDS: NOREPINEPHRINE 8 MG/250 ML-D5W 250 ML IVPB SCH ×2 (08:38→20:04)
[2022-07-26] MEDS: HumaLOG 300 UNITS/3 ML VIAL SC PRN ×3 (10:21→23:01)
[2022-07-26] MEDS: Epoetin (ESRD) 10,000 UNITS/ML VIAL SC SCH (12:20)
[2022-07-26] MEDS ORDERED: Piperacillin/Tazobactam 3.375 GM in Sodium Chloride 0.9% 100 ML IVPB SCH (14:00)
[2022-07-26] MEDS: Cefepime 1 GM in Sodium Chloride 0.9% 100 ML IVPB SCH (16:14)
[2022-07-26] MEDS ORDERED: Vancomycin HCl 750 MG in Sodium Chloride 0.9% 250 ML 250 ML IVPB SCH (17:00)
[2022-07-26] MEDS ORDERED: Amiodarone 150 MG, Admixture Fee 1 EACH in Dextrose 5% in Water 100 ML IVPB SCH (18:45)
[2022-07-26 18:58] LABS: Hemoglobin 6.7 g/dL (12.0-16.0); Platelet Count 215 thou/uL (130-400)
[2022-07-26] MEDS: Amiodarone 450 MG, Admixture Fee 1 EACH in Dextrose 5% in Water 250 ML IVPB SCH (19:01)
[2022-07-26] MEDS: Atorvastatin Calcium 40 MG TAB PO SCH (20:04)
[2022-07-27] MEDS: NOREPINEPHRINE 8 MG/250 ML-D5W 250 ML IVPB SCH (04:03)
[2022-07-27] MEDS: Amiodarone 450 MG, Admixture Fee 1 EACH in Dextrose 5% in Water 250 ML IVPB SCH (04:04)
[2022-07-27 04:47] LABS: ALT (SGPT) 38 U/L (8-55); AST (SGOT) 70 U/L (5-34); Alkaline Phosphatase 455 U/L (40-110); Anion Gap 17 mmol/L (10-20); BUN (Urea Nitrogen) 18 mg/dL (9.8-20.1); Bilirubin, Total 4.3 mg/dL (0.2-1.2); Calc. Creatinine Clearance 27 mL/min (70-130); Calcium 7.8 mg/dL (7.8-10.44); Carbon Dioxide 22 mmol/L (23-31); Chloride 91 mmol/L (98-107); Estimated GFR 13; Glucose 323 mg/dL (80-115); Sodium 126 mmol/L (136-145)
[2022-07-27 05:23] LABS: Band 18 % (5-11); Hemoglobin 7.4 g/dL (12.0-16.0); Lymphocytes 18 % (21-51); MDiff Complete? YES; Mean Corpuscular HGB CONC 31.8 g/dL (32.0-36.0); Mean Corpuscular Volume 87.9 fL (78.0-98.0); Mean Platelet Volume 9.4 fL (7.4-10.4); Metamyelocyte 2 % (0-0); Monocytes 3 % (0-10); Myelocyte 2 % (0-0); Neutrophil 57 % (42-75); Platelet Count 210 thou/uL (130-400); RBC Distribution Width 16.4 % (11.5-14.5); Red Blood Cell (RBC) Count 2.66 mill/uL (4.20-5.40); White Blood Cell (WBC) Count 10.7 thou/uL (4.8-10.8)
[2022-07-27] MEDS: HumaLOG 300 UNITS/3 ML VIAL SC PRN ×4 (05:36→21:19)
[2022-07-27 06:53] LABS: Vancomycin, Random 22.9 ug/mL (See Comment)
[2022-07-27 08:06] LABS: Base Excess (BEa) -0.3 mEq/L (-2.0 to +3.0); CO2 Tension 37.3 mmHg (35.0-45.0); Calcium, Ionized (arterial) 1.04 mmol/L (1.12-1.30); Hemoglobin (Hb) 8.4 g/dL (12.0-16.0); O2 Tension (PaO2), arterial 77.5 mmHg (> 80.0); Potassium - ABG Lab 3.72 mmol/L (3.70-5.30); pH, Arterial 7.43 (7.35-7.45)
[2022-07-27] MEDS: Pantoprazole 40 MG VIAL IVP SCH (08:14)
[2022-07-27] MEDS: Heparin 25,000 units/D5W 500 ML IVPB SCH (08:14)
[2022-07-27] MEDS: Aspirin Chewable 81 MG TAB PO SCH (08:14)
[2022-07-27 08:15] LABS: Puncture Site RRA
[2022-07-27 08:16] LABS: ALV-art Gradient 89.775 mmHg (0-20)
[2022-07-27] MEDS: Scopolamine 1.5 mg/72 hour Patch TD SCH (12:22)
[2022-07-27] MEDS: Cefepime 1 GM in Sodium Chloride 0.9% 100 ML IVPB SCH (16:40)
[2022-07-27] MEDS: Morphine 2 MG/ML VIAL SLOW IVP PRN (20:25)
[2022-07-27] MEDS: Atorvastatin Calcium 40 MG TAB PO SCH (20:27)
[2022-07-27] MEDS ORDERED: Insulin Glargine 30 UNITS/0.3 ML VIAL SC SCH (21:00)
[2022-07-28] MEDS: HumaLOG 300 UNITS/3 ML VIAL SC PRN ×4 (03:27→21:23)
[2022-07-28] MEDS: Heparin 25,000 units/D5W 500 ML IVPB SCH ×2 (03:50→21:33)
[2022-07-28 04:27] LABS: ALT (SGPT) 35 U/L (8-55); AST (SGOT) 71 U/L (5-34); Alkaline Phosphatase 495 U/L (40-110); Anion Gap 14 mmol/L (10-20); BUN (Urea Nitrogen) 17 mg/dL (9.8-20.1); Bilirubin, Total 3.8 mg/dL (0.2-1.2); Calc. Creatinine Clearance 36 mL/min (70-130); Calcium 7.9 mg/dL (7.8-10.44); Carbon Dioxide 26 mmol/L (23-31); Chloride 93 mmol/L (98-107); Estimated GFR 18; Globulin 5.1 g/dL (2.4-3.5); Glucose 373 mg/dL (80-115); Potassium 3.7 mmol/L (3.5-5.1); Protein, Total 7.1 g/dL (5.8-8.1); Sodium 129 mmol/L (136-145)
[2022-07-28 05:07] LABS: Band 9 % (5-11); Eosinophils 1 % (0-10); Hemoglobin 7.1 g/dL (12.0-16.0); Lymphocytes 8 % (21-51); MDiff Complete? YES; Mean Corpuscular HGB CONC 32.6 g/dL (32.0-36.0); Mean Corpuscular Hemoglobin 28.6 pg (27.0-31.0); Mean Corpuscular Volume 87.8 fL (78.0-98.0); Mean Platelet Volume 9.8 fL (7.4-10.4); Metamyelocyte 3 % (0-0); Monocytes 6 % (0-10); Neutrophil 73 % (42-75); Platelet Count 156 thou/uL (130-400); Platelet Morphology Comment Appears Adequate; RBC Distribution Width 16.6 % (11.5-14.5); RBC Morphology Normal; Red Blood Cell (RBC) Count 2.49 mill/uL (4.20-5.40)
[2022-07-28] MEDS: Amiodarone 450 MG, Admixture Fee 1 EACH in Dextrose 5% in Water 250 ML IVPB SCH (08:06)
[2022-07-28] MEDS: Aspirin Chewable 81 MG TAB PO SCH (09:37)
[2022-07-28] MEDS: Pantoprazole 40 MG VIAL IVP SCH (09:37)
[2022-07-28] MEDS ORDERED: Insulin Glargine 30 UNITS/0.3 ML VIAL SC SCH (10:00)
[2022-07-28] MEDS: Cefepime 0.5 GM in Sodium Chloride 0.9% 100 ML IVPB SCH (17:10)
[2022-07-28] MEDS ORDERED: Fluconazole 100 MG TAB PO SCH (17:15)
[2022-07-28 19:35] LABS: Hemoglobin 7.1 g/dL (12.0-16.0); Platelet Count 153 thou/uL (130-400)
[2022-07-28] MEDS: Atorvastatin Calcium 40 MG TAB PO SCH (21:17)
[2022-07-29] MEDS: HumaLOG 300 UNITS/3 ML VIAL SC PRN ×4 (03:59→22:35)
[2022-07-29 05:04] LABS: ALT (SGPT) 40 U/L (8-55); AST (SGOT) 94 U/L (5-34); Albumin 2.1 g/dL (3.4-4.8); Alkaline Phosphatase 615 U/L (40-110); Anion Gap 15 mmol/L (10-20); BUN (Urea Nitrogen) 25 mg/dL (9.8-20.1); Bilirubin, Total 4.1 mg/dL (0.2-1.2); Calc. Creatinine Clearance 31 mL/min (70-130); Calcium 8.2 mg/dL (7.8-10.44); Carbon Dioxide 25 mmol/L (23-31); Chloride 90 mmol/L (98-107); Estimated GFR 14; Globulin 5.2 g/dL (2.4-3.5); Glucose 315 mg/dL (80-115); Potassium 3.8 mmol/L (3.5-5.1); Protein, Total 7.3 g/dL (5.8-8.1); Sodium 126 mmol/L (136-145)
[2022-07-29 06:14] LABS: Hemoglobin 6.9 g/dL (12.0-16.0); Mean Corpuscular HGB CONC 31.8 g/dL (32.0-36.0); Mean Corpuscular Hemoglobin 27.6 pg (27.0-31.0); Mean Corpuscular Volume 86.8 fL (78.0-98.0); Mean Platelet Volume 10.8 fL (7.4-10.4); Platelet Count 149 thou/uL (130-400); RBC Distribution Width 16.8 % (11.5-14.5); White Blood Cell (WBC) Count 14.1 thou/uL (4.8-10.8)
[2022-07-29 06:24] LABS: Band 16 % (5-11); Lymphocytes 9 % (21-51); MDiff Complete? YES; Metamyelocyte 2 % (0-0); Monocytes 4 % (0-10); Myelocyte 4 % (0-0); Neutrophil 65 % (42-75)
[2022-07-29] MEDS ORDERED: Insulin Glargine 30 UNITS/0.3 ML VIAL SC SCH ×2 (09:00→16:45)
[2022-07-29] MEDS: Aspirin Chewable 81 MG TAB PO SCH (09:59)
[2022-07-29] MEDS: Pantoprazole 40 MG VIAL IVP SCH (09:59)
[2022-07-29] MEDS: Fluconazole 100 MG TAB PO SCH (17:28)
[2022-07-29] MEDS: Cefepime 0.5 GM in Sodium Chloride 0.9% 100 ML IVPB SCH (17:28)
[2022-07-29] MEDS: Heparin 25,000 units/D5W 500 ML IVPB SCH (17:51)
[2022-07-29] MEDS: Amiodarone 450 MG, Admixture Fee 1 EACH in Dextrose 5% in Water 250 ML IVPB SCH (18:01)
[2022-07-29] MEDS: Atorvastatin Calcium 40 MG TAB PO SCH (21:00)
[2022-07-30] MEDS: HumaLOG 300 UNITS/3 ML VIAL SC PRN ×3 (06:24→22:15)
[2022-07-30] MEDS ORDERED: Heparin 5,000 UNITS/ML VIAL ONE (06:49)
[2022-07-30] MEDS ORDERED: Lidocaine 2% PF 5 ML VIAL ONE (06:49)
[2022-07-30] MEDS ORDERED: Bupivacaine HCl 0.5%/Epinephrine 1:200,000/PF 30 ml Vial ONE (06:49)
[2022-07-30] MEDS ORDERED: Protamine Sulfate 50 MG/5 ML VIAL ONE (06:52)
[2022-07-30] MEDS ORDERED: fentaNYL Citrate/PF 100 MCG/2 ML SYRINGE ONE (07:03)
[2022-07-30] MEDS ORDERED: Ketamine 50 MG/ML (10ML VIAL) ONE (07:04)
[2022-07-30] MEDS ORDERED: Phenylephrine 10 MG/ML VIAL ONE ×2 (07:04→07:59)
[2022-07-30] MEDS ORDERED: SUGAMMADEX SODIUM 200 MG/2 ML VIAL ONE (07:11)
[2022-07-30] MEDS ORDERED: Midazolam HCl 2 mg/2 ml Vial ONE (07:11)
[2022-07-30] MEDS: Amiodarone 450 MG, Admixture Fee 1 EACH in Dextrose 5% in Water 250 ML IVPB SCH (07:18)
[2022-07-30] MEDS ORDERED: ePHEDrine 50 MG/ML VIAL ONE (07:59)
[2022-07-30] MEDS ORDERED: Ondansetron PF 4 MG/2 ML Vial ONE (07:59)
[2022-07-30 08:18] LABS: Hemoglobin 8.3 g/dL (12.0-16.0); Mean Corpuscular HGB CONC 32.1 g/dL (32.0-36.0); Mean Corpuscular Hemoglobin 27.6 pg (27.0-31.0); Mean Platelet Volume 11.1 fL (7.4-10.4); Platelet Count 142 thou/uL (130-400); Red Blood Cell (RBC) Count 3.02 mill/uL (4.20-5.40); White Blood Cell (WBC) Count 14.4 thou/uL (4.8-10.8)
[2022-07-30 08:34] LABS: Anion Gap 17 mmol/L (10-20); BUN (Urea Nitrogen) 33 mg/dL (9.8-20.1); Calc. Creatinine Clearance 27 mL/min (70-130); Calcium 8.5 mg/dL (7.8-10.44); Carbon Dioxide 23 mmol/L (23-31); Chloride 88 mmol/L (98-107); Estimated GFR 12; Glucose 191 mg/dL (80-115); Potassium 3.8 mmol/L (3.5-5.1); Sodium 124 mmol/L (136-145)
[2022-07-30] MEDS ORDERED: Heparin 10,000 UNITS/ 10 ML VIAL ONE (08:48)
[2022-07-30 09:44] LABS: Band 23 % (5-11); Lymphocytes 11 % (21-51); MDiff Complete? YES; Metamyelocyte 1 % (0-0); Monocytes 1 % (0-10); Neutrophil 63 % (42-75); Nucleated RBC 1 % (0); Platelet Morphology Comment Appears Adequate; Polychromasia SLIGHT = 2-3 cells (100X) (0-2/hpf); Reactive Lymphocytes 1 % (0-10); Rouleaux Formation SLIGHT = 1-5 cells (100X) (None Seen)
[2022-07-30] MEDS ORDERED: Ventilator Sedation Protocol 1 EACH FS ONE (10:19)
[2022-07-30] MEDS ORDERED: Fentanyl CADD 100 ML IV SCH (10:30)
[2022-07-30] MEDS ORDERED: Fentanyl BOLUS 250 ML IVPB PRN (10:30)
[2022-07-30] MEDS ORDERED: DISCONTINUE PREVIOUS NARCOTIC PAIN MEDICATIONS AND BENZODIAZEPINES FS SCH (10:30)
[2022-07-30] MEDS ORDERED: Propofol 1,000 MG/100 ML VIAL IV PRN (10:30)
[2022-07-30] MEDS ORDERED: Propofol BOLUS 1,000 MG/100 ML VIAL IV PRN (10:30)
[2022-07-30 11:23] LABS: HBSAB Concentration Less than 8.00 mIU/mL; HBSAg Index 0.28 S/CO (0-0.99); Hep B Core Total Ab Non-Reactive (NonReactive); Hep B Core Total Index 0.31 S/CO (0-0.79); Hep B Surf AB Non-Reactive (NonReactive); Hep B Surf Ag Non-Reactive S/CO (NonReactive); Hep C IgG Ab Non-Reactive (NonReactive); Hep C Index 0.28 S/CO (0-0.79)
[2022-07-30] MEDS: Aspirin Chewable 81 MG TAB PO SCH (14:10)
[2022-07-30] MEDS: Pantoprazole 40 MG VIAL IVP SCH (14:11)
[2022-07-30] MEDS: Insulin Glargine 30 UNITS/0.3 ML VIAL SC SCH (14:11)
[2022-07-30] MEDS: Scopolamine 1.5 mg/72 hour Patch TD SCH (14:55)
[2022-07-30] MEDS ORDERED: NOREPINEPHRINE 8 MG/250 ML-D5W 250 ML IVPB SCH (15:45)
[2022-07-30] MEDS: Fluconazole 100 MG TAB PO SCH (16:56)
[2022-07-30 19:34] LABS: Hemoglobin 7.7 g/dL (12.0-16.0); Platelet Count 123 thou/uL (130-400)
[2022-07-30] MEDS: Cefepime 1 GM in Sodium Chloride 0.9% 100 ML IVPB SCH (19:45)
[2022-07-30] MEDS: Atorvastatin Calcium 40 MG TAB PO SCH (21:55)
[2022-07-31] MEDS: Amiodarone 450 MG, Admixture Fee 1 EACH in Dextrose 5% in Water 250 ML IVPB SCH (00:02)
[2022-07-31 00:04] LABS: Hemoglobin 7.7 g/dL (12.0-16.0); Platelet Count 123 thou/uL (130-400)
[2022-07-31 00:11] LABS: INR-International Normal Ratio 1.3; Prothrombin Time 16.2 sec (12.0-14.7)
[2022-07-31 00:12] LABS: PTT 38.2 sec (22.9-36.1)
[2022-07-31] MEDS: Heparin 25,000 units/D5W 500 ML IVPB SCH ×2 (00:32→15:38)
[2022-07-31] MEDS: HumaLOG 300 UNITS/3 ML VIAL SC PRN ×4 (04:29→22:10)
[2022-07-31 05:32] LABS: Anion Gap 14 mmol/L (10-20); BUN (Urea Nitrogen) 21 mg/dL (9.8-20.1); Calc. Creatinine Clearance 38 mL/min (70-130); Calcium 8.1 mg/dL (7.8-10.44); Carbon Dioxide 25 mmol/L (23-31); Chloride 92 mmol/L (98-107); Estimated GFR 18; Glucose 231 mg/dL (80-115); Potassium 3.7 mmol/L (3.5-5.1); Sodium 127 mmol/L (136-145)
[2022-07-31 05:51] LABS: Hemoglobin 7.5 g/dL (12.0-16.0); Mean Corpuscular HGB CONC 31.7 g/dL (32.0-36.0); Mean Corpuscular Hemoglobin 27.3 pg (27.0-31.0); Mean Corpuscular Volume 86.2 fL (78.0-98.0); Mean Platelet Volume 8.2 fL (7.4-10.4); Platelet Count 125 thou/uL (130-400); Red Blood Cell (RBC) Count 2.73 mill/uL (4.20-5.40); White Blood Cell (WBC) Count 11.6 thou/uL (4.8-10.8)
[2022-07-31 06:10] LABS: #Eosinphils 0.1 thou/uL (0.0-0.7); #Lymphocytes 1.2 thou/uL (1.20-3.40); #Monocytes 0.5 thou/uL (0.11-0.59); #Neutrophils 9.8 thou/uL (1.40-6.50); %Basophils 0.1 % (0.0-1.0); %Eosinophils 0.7 % (0.0-10.0); %Lymphocytes 10.7 % (21.0-51.0); %Monocytes 4.5 % (0.0-10.0); %Neutrophils 84.1 % (42.0-75.0)
[2022-07-31 07:38] LABS: PTT 222.4 sec (22.9-36.1)
[2022-07-31] MEDS: Aspirin Chewable 81 MG TAB PO SCH (09:03)
[2022-07-31] MEDS: Pantoprazole 40 MG VIAL IVP SCH (09:03)
[2022-07-31] MEDS: Insulin Glargine 30 UNITS/0.3 ML VIAL SC SCH (09:07)
[2022-07-31 16:44] LABS: PTT 196.8 sec (22.9-36.1)
[2022-07-31] MEDS: Cefepime 1 GM in Sodium Chloride 0.9% 100 ML IVPB SCH (16:59)
[2022-07-31] MEDS: Fluconazole 100 MG TAB PO SCH (17:00)
[2022-07-31] MEDS: Atorvastatin Calcium 40 MG TAB PO SCH (20:31)
[2022-07-31] MEDS: Amiodarone 200 MG TAB PO SCH (20:31)
[2022-08-01 02:59] LABS: Anisocytosis SLIGHT = 6-15 cells (100X) (0-5/hpf); Band 22 % (5-11); Eosinophils 2 % (0-10); Hemoglobin 7.6 g/dL (12.0-16.0); Lymphocytes 11 % (21-51); MDiff Complete? YES; Mean Corpuscular HGB CONC 32.5 g/dL (32.0-36.0); Mean Corpuscular Hemoglobin 28.4 pg (27.0-31.0); Mean Corpuscular Volume 87.5 fL (78.0-98.0); Mean Platelet Volume 11.7 fL (7.4-10.4); Monocytes 5 % (0-10); Myelocyte 2 % (0-0); Neutrophil 58 % (42-75); Platelet Count 119 thou/uL (130-400); Platelet Morphology Comment Appears Decreased; RBC Distribution Width 17.9 % (11.5-14.5); Red Blood Cell (RBC) Count 2.67 mill/uL (4.20-5.40); White Blood Cell (WBC) Count 12.2 thou/uL (4.8-10.8)
[2022-08-01 03:02] LABS: Anion Gap 16 mmol/L (10-20); BUN (Urea Nitrogen) 30 mg/dL (9.8-20.1); Calc. Creatinine Clearance 30 mL/min (70-130); Calcium 8.2 mg/dL (7.8-10.44); Carbon Dioxide 23 mmol/L (23-31); Chloride 89 mmol/L (98-107); Estimated GFR 14; Glucose 236 mg/dL (80-115); Potassium 3.7 mmol/L (3.5-5.1); Sodium 124 mmol/L (136-145)
[2022-08-01 04:28] LABS: PTT 137.1 sec (22.9-36.1)
[2022-08-01] MEDS ORDERED: Heparin 10,000 UNITS/ 10 ML VIAL ONE (08:09)
[2022-08-01] MEDS: Insulin Glargine 30 UNITS/0.3 ML VIAL SC SCH (08:39)
[2022-08-01] MEDS: Amiodarone 200 MG TAB PO SCH ×3 (08:40→22:07)
[2022-08-01] MEDS: Aspirin Chewable 81 MG TAB PO SCH (08:40)
[2022-08-01] MEDS: Pantoprazole 40 MG VIAL IVP SCH (08:40)
[2022-08-01] MEDS ORDERED: Apixaban 5 MG TAB PER TUBE SCH ×2 (09:00→09:30)
[2022-08-01 09:30] VITALS: BMI 43.7
[2022-08-01] MEDS: HumaLOG 300 UNITS/3 ML VIAL SC PRN (14:38)
[2022-08-01 15:05] VITALS: BP 141/66
[2022-08-01 15:20] LABS: HBSAg Index 0.21 S/CO (0-0.99); Hep B Surf Ag Non-Reactive S/CO (NonReactive)
[2022-08-01] MEDS: Cefepime 1 GM in Sodium Chloride 0.9% 100 ML IVPB SCH (16:43)
[2022-08-01] MEDS: Fluconazole 100 MG TAB PO SCH (16:44)
[2022-08-01] MEDS: Apixaban 5 MG TAB PER TUBE SCH (22:07)
[2022-08-01] MEDS: Atorvastatin Calcium 40 MG TAB PO SCH (22:07)
[2022-08-02 05:31] LABS: #Eosinphils 0.1 thou/uL (0.0-0.7); #Lymphocytes 0.8 thou/uL (1.20-3.40); #Monocytes 0.4 thou/uL (0.11-0.59); %Basophils 0.1 % (0.0-1.0); %Eosinophils 0.6 % (0.0-10.0); %Lymphocytes 7.2 % (21.0-51.0); %Monocytes 3.8 % (0.0-10.0); %Neutrophils 88.3 % (42.0-75.0); Hemoglobin 7.9 g/dL (12.0-16.0); Mean Corpuscular HGB CONC 31.7 g/dL (32.0-36.0); Mean Corpuscular Hemoglobin 27.9 pg (27.0-31.0); Mean Corpuscular Volume 88.1 fL (78.0-98.0); Platelet Count 115 thou/uL (130-400); RBC Distribution Width 18.3 % (11.5-14.5); Red Blood Cell (RBC) Count 2.82 mill/uL (4.20-5.40); White Blood Cell (WBC) Count 11.4 thou/uL (4.8-10.8)
[2022-08-02 05:42] LABS: Anion Gap 15 mmol/L (10-20); BUN (Urea Nitrogen) 18 mg/dL (9.8-20.1); Calc. Creatinine Clearance 42 mL/min (70-130); Calcium 8.3 mg/dL (7.8-10.44); Carbon Dioxide 25 mmol/L (23-31); Chloride 94 mmol/L (98-107); Estimated GFR 20; Glucose 146 mg/dL (80-115); Potassium 3.5 mmol/L (3.5-5.1); Sodium 130 mmol/L (136-145)
[2022-08-02] MEDS ORDERED: Amiodarone 200 MG TAB PO SCH (09:00)
[2022-08-02] MEDS: Aspirin Chewable 81 MG TAB PO SCH (09:01)
[2022-08-02] MEDS: Apixaban 5 MG TAB PER TUBE SCH (09:03)
[2022-08-02] MEDS: Insulin Glargine 30 UNITS/0.3 ML VIAL SC SCH (09:03)
[2022-08-02] MEDS: Pantoprazole 40 MG VIAL IVP SCH (09:04)
[2022-08-02] MEDS: HumaLOG 300 UNITS/3 ML VIAL SC PRN ×2 (11:00→17:20)
[2022-08-02] MEDS: Scopolamine 1.5 mg/72 hour Patch TD SCH (11:35)
[2022-08-02] MEDS: Epoetin (ESRD) 10,000 UNITS/ML VIAL SC SCH (12:32)
[2022-08-02] MEDS ORDERED: Silver Nitrate Application 1 EACH TOP SCH (15:45)
[2022-08-02 17:01] VITALS: TEMP 97.5
[2022-08-02] MEDS: Fluconazole 100 MG TAB PO SCH (17:20)
== END 2022-08-02 19:05 | DRG 3 ==
LOC: ERS 15:20 → NEURO 19:15 → ERS 19:15 → CCU 20:59 → IMCU/EMU 07-05 16:02 → SURG A 07-13 18:29 → CCU 07-24 01:17
PROVIDERS: ADMIT Student in an Organized Health Care Education/Training Program; ATTEND Internal Medicine
PROC: 5A1955Z Respiratory Ventilation, Greater than 96 Consecutive Hours (ICD-10-PCS; principal; 2022-06-24)
PROC: 30233N1 Transfusion of Nonautologous Red Blood Cells into Peripheral Vein, Percutaneous Approach (ICD-10-PCS; 2022-06-24)
PROC: 5A12012 Performance of Cardiac Output, Single, Manual (ICD-10-PCS; 2022-06-24)
PROC: 3E04329 Introduction of Other Anti-infective into Central Vein, Percutaneous Approach (ICD-10-PCS; 2022-06-24)
PROC: 3E043XZ Introduction of Vasopressor into Central Vein, Percutaneous Approach (ICD-10-PCS; 2022-06-24)
PROC: 0BH17EZ Insertion of Endotracheal Airway into Trachea, Via Natural or Artificial Opening (ICD-10-PCS; 2022-06-24)
PROC: 3E033XZ Introduction of Vasopressor into Peripheral Vein, Percutaneous Approach (ICD-10-PCS; 2022-06-24)
PROC: 02HV33Z Insertion of Infusion Device into Superior Vena Cava, Percutaneous Approach (ICD-10-PCS; 2022-06-24)
PROC: B548ZZA Ultrasonography of Superior Vena Cava, Guidance (ICD-10-PCS; 2022-06-24)
PROC: 0DH67UZ Insertion of Feeding Device into Stomach, Via Natural or Artificial Opening (ICD-10-PCS; 2022-06-24)
PROC: 3E0G76Z Introduction of Nutritional Substance into Upper GI, Via Natural or Artificial Opening (ICD-10-PCS; 2022-06-24)
PROC: 3E04317 Introduction of Other Thrombolytic into Central Vein, Percutaneous Approach (ICD-10-PCS; 2022-06-25)
PROC: 06HY33Z Insertion of Infusion Device into Lower Vein, Percutaneous Approach (ICD-10-PCS; 2022-06-27)
PROC: 031B0ZF Bypass Right Radial Artery to Lower Arm Vein, Open Approach (ICD-10-PCS; 2022-06-29)
PROC: 05JY0ZZ Inspection of Upper Vein, Open Approach (ICD-10-PCS; 2022-06-29)
PROC: 5A1D70Z Performance of Urinary Filtration, Intermittent, Less than 6 Hours Per Day (ICD-10-PCS; 2022-06-29)
PROC: 02HV33Z Insertion of Infusion Device into Superior Vena Cava, Percutaneous Approach (ICD-10-PCS; 2022-07-06)
PROC: B5181ZA Fluoroscopy of Superior Vena Cava using Low Osmolar Contrast, Guidance (ICD-10-PCS; 2022-07-06)
PROC: B548ZZA Ultrasonography of Superior Vena Cava, Guidance (ICD-10-PCS; 2022-07-06)
PROC: 0DH67UZ Insertion of Feeding Device into Stomach, Via Natural or Artificial Opening (ICD-10-PCS; 2022-07-08)
PROC: 3E0G76Z Introduction of Nutritional Substance into Upper GI, Via Natural or Artificial Opening (ICD-10-PCS; 2022-07-08)
PROC: 5A1955Z Respiratory Ventilation, Greater than 96 Consecutive Hours (ICD-10-PCS; 2022-07-24)
PROC: 02HV33Z Insertion of Infusion Device into Superior Vena Cava, Percutaneous Approach (ICD-10-PCS; 2022-07-24)
PROC: B548ZZA Ultrasonography of Superior Vena Cava, Guidance (ICD-10-PCS; 2022-07-24)
PROC: 0BH17EZ Insertion of Endotracheal Airway into Trachea, Via Natural or Artificial Opening (ICD-10-PCS; 2022-07-24)
PROC: 5A12012 Performance of Cardiac Output, Single, Manual (ICD-10-PCS; 2022-07-24)
PROC: 0B110F4 Bypass Trachea to Cutaneous with Tracheostomy Device, Open Approach (ICD-10-PCS; 2022-07-30)
PROC: 0JBF0ZZ Excision of Left Upper Arm Subcutaneous Tissue and Fascia, Open Approach (ICD-10-PCS; 2022-08-02)
PROC: 0HBCXZZ Excision of Left Upper Arm Skin, External Approach (ICD-10-PCS; 2022-08-02)
DX: A41.50 Gram-negative sepsis, unspecified (principal); I46.8 Cardiac arrest due to other underlying condition; J18.9 Pneumonia, unspecified organism; R65.21 Severe sepsis with septic shock; I63.89 Other cerebral infarction; N18.6 End stage renal disease; J96.21 Acute and chronic respiratory failure with hypoxia; J96.22 Acute and chronic respiratory failure with hypercapnia; G93.41 Metabolic encephalopathy; N17.0 Acute kidney failure with tubular necrosis; I26.02 Saddle embolus of pulmonary artery with acute cor pulmonale; R57.0 Cardiogenic shock; K72.00 Acute and subacute hepatic failure without coma; I26.94 Multiple subsegmental thrombotic pulmonary emboli without acute cor pulmonale; J69.0 Pneumonitis due to inhalation of food and vomit; I21.A1 Myocardial infarction type 2; J44.0 Chronic obstructive pulmonary disease with (acute) lower respiratory infection; Z68.41 Body mass index [BMI] 40.0-44.9, adult; G93.1 Anoxic brain damage, not elsewhere classified; I13.0 Hypertensive heart and chronic kidney disease with heart failure and stage 1 through stage 4 chronic kidney disease, or unspecified chronic kidney disease; I31.3 Pericardial effusion (noninflammatory); I42.9 Cardiomyopathy, unspecified; K92.2 Gastrointestinal hemorrhage, unspecified; I47.1 Supraventricular tachycardia; R47.01 Aphasia; G81.91 Hemiplegia, unspecified affecting right dominant side; I48.92 Unspecified atrial flutter; E87.1 Hypo-osmolality and hyponatremia; Z20.822 Contact with and (suspected) exposure to COVID-19; I50.9 Heart failure, unspecified; E78.5 Hyperlipidemia, unspecified; E11.22 Type 2 diabetes mellitus with diabetic chronic kidney disease; D63.1 Anemia in chronic kidney disease; D69.6 Thrombocytopenia, unspecified; R00.1 Bradycardia, unspecified; L89.621 Pressure ulcer of left heel, stage 1; M19.90 Unspecified osteoarthritis, unspecified site; I27.20 Pulmonary hypertension, unspecified; G47.33 Obstructive sleep apnea (adult) (pediatric); R74.01 Elevation of levels of liver transaminase levels; I07.1 Rheumatic tricuspid insufficiency; I48.0 Paroxysmal atrial fibrillation; R53.81 Other malaise; I95.9 Hypotension, unspecified; R29.898 Other symptoms and signs involving the musculoskeletal system; E87.6 Hypokalemia; L98.499 Non-pressure chronic ulcer of skin of other sites with unspecified severity; D50.0 Iron deficiency anemia secondary to blood loss (chronic); E11.649 Type 2 diabetes mellitus with hypoglycemia without coma; E11.65 Type 2 diabetes mellitus with hyperglycemia; R91.1 Solitary pulmonary nodule; E88.09 Other disorders of plasma-protein metabolism, not elsewhere classified; E66.01 Morbid (severe) obesity due to excess calories; N28.1 Cyst of kidney, acquired; Z95.5 Presence of coronary angioplasty implant and graft; Z79.899 Other long term (current) drug therapy; Z79.02 Long term (current) use of antithrombotics/antiplatelets; Z79.4 Long term (current) use of insulin; Z90.49 Acquired absence of other specified parts of digestive tract; Z90.710 Acquired absence of both cervix and uterus
CPT/HCPCS: 31500; 36415; 36416; 36430; 36556; 36600; 70450; 71045; 71275; 74018; 74230; 76700; 80048; 80053; 80061; 80074; 80202; 80306; 80307; 81003; 81015; 82140; 82533; 82550; 82553; 82805; 83540; 83550; 83605; 83690; 83735; 83880; 84145; 84443; 84484; 85014; 85018; 85025; 85046; 85049; 85060; 85300; 85362; 85379; 85384; 85610; 85730; 86704; 86850; 86900; 86901; 87040; 87070; 87077; 87081; 87086; 87149; 87186; 87205; 87340; 87449; 87811; 87899; 89220; 90935; 92950; 93005; 93010; 93306; 93880; 93970; 94002; 94003; 94640; 94760; 95712; 95819; 95957; 96365; 96366; 96367; 96368; 96375; 97139; 99292; A4217; C1713; C1751; C1752; C1776; C9113; G0257; J0171; J0282; J0360; J0461; J0692; J1642; J1644; J1720; J1815; J1940; J2001; J2250; J2270; J2370; J2405; J2543; J2704; J2720; J2765; J2997; J3010; J3370; J3475; J3480; J3490; J7030; J7050; J7070; J7620; J7999; P9016; Q4081; Q9967; U0002; U0003; U0005